=== PATIENT | female | born 1985 | race Caucasian/White ===

== ENCOUNTER → 2017-03-21 | Outpatient (CLI) | payer BC ==
[~2017-03-21] MED LIST: ETHINYL ESTRADIOL PO; NORGESTIMATE PO
[2017-03-21 18:06] LABS: URINE APPEARANCE CLOUDY (CLEAR); URINE BILIRUBIN NEG (NEG); URINE COLOR YELLOW; URINE EPITHELIAL CELL AUTO >30 /lpf (0-5); URINE NITRITE NEG (NEG); URINE SPECIFIC GRAVITY 1.025 (1.000-1.030); UROBILINOGEN NEG (NEG)
[2017-03-21 18:10] LABS: MANUAL MICROSCOPIC REQUIRED? NO; REVIEW REQ? YES
== END | disposition home or self-care (01) ==
LOC: MERGE 17:39 → C.LABSPEC 17:39
PROVIDERS: ATTEND Obstetrics & Gynecology
DX: Z34.01 Encounter for supervision of normal first pregnancy, first trimester (principal)

== ENCOUNTER → 2017-03-24 | Day surgery (SDC) | payer BC ==
[~2017-03-24] VITALS: Ht 167.6 cm; Wt 87.0 kg
[~2017-03-24] MED LIST changes: +ATROPINE SULFATE 0.1 MG/ML 5ML SYR IV PRN; +DEXAMETHASONE SOD INJ 4 MG/ML VIAL ONE; +DOXYCYCLINE HYCLATE 100 MG CAP PO SCH; +EpHEDrine SULFATE INJ 50 MG/ML AMP IV PRN; +FENTANYL CITRATE INJ 50 MCG/1 ML 2 ML VIAL IV PRN; +FENTANYL CITRATE INJ 50 MCG/1 ML 2 ML VIAL ONE; +HYDROmorphone INJ 1 MG/ML SYR IV PRN; +LACTATED RINGER'S 1000ML 1,000 ML IV SCH; +LIDOCAINE HCL 2% 2 ML VIAL (20MG/ML) ONE; +MIDAZOLAM HCL 1 MG/ML 2ML VIAL ONE; +ONDANSETRON INJ 2 MG/ML 2 ML VIAL IV PRN; +ONDANSETRON INJ 2 MG/ML 2 ML VIAL ONE; +PROPOFOL IV EMULSION 10 MG/ML 20 ML VIAL IV ONE
[2017-03-24 09:30] VITALS: BP 154/88; PULSE 86; TEMP 36.6; O2SAT 100; Ht 167.6 cm; Wt 87.0 kg
--- NOTE | 2017-03-24 11:19 | History & Physical Bridge Note ---
H&P Re-Evaluation Bridge Note: I have examined the patient, reviewed the History & Physical and in the interval since the performance of the History & Physical I have noted the following changes of clinical significance: No changes noted
--- NOTE | 2017-03-24 11:20 | Discharge Instructions ---
Discharge Instructions Date of Service Mar 24, 2017. Visit Reason for Visit: Missed Discharge Discharge Diagnosis / Problem: Dilation and Evacuation Discharge Goals Goal(s): Specific goals Activity Recommendations Activity Limitations: per Instructions/Follow-up section Anesthesia . Post Anesthesia Instructions: If you have had General Anesthesia or IV Sedation: * Do not drive today. * Resume driving when surgeon permits. * Do not make important decisions or sign legal documents today. * Call surgeon for: 1. Temperature elevations greater than 101 degrees F. 2. Uncontrollable pain. 3. Excessive bleeding. 4. Persistent nausea and vomiting. 5. Medication intolerance (nausea, vomiting or rash). * For nausea and vomiting use only clear liquids such as: tea, soda, bouillon until nausea subsides, then gradually increase diet as tolerated. * If you have any concerns or questions, call your surgeon's office. If physician is unavailable and it is an emergency, call 911 or go to the nearest emergency room. . Instructions / Follow-Up Instructions / Follow-Up ACTIVITY RECOMMENDATIONS: * Avoid tampons, douching, hot tubs, pools, and intercourse until bleeding has stopped. * May shower as usual. * No strenuous activity for 24-48 hours. After 24-48 hours, you may do anything you feel like doing (driving and sports are okay). SPECIAL CARE INSTRUCTIONS: Special Diet: * Mild nausea may occur in the immediate post-operative period. * Take clear liquids such as tea, cola or bouillon until all nausea has subsided; you may then resume your normal diet. Special Care: * Light bleeding and vaginal spotting can last from a few days to 3-4 weeks. Call your doctor if bleeding becomes heavier than the heaviest part of your period. * Check your temperature twice a day for one week. If it goes above 100.4 degrees Fahrenheit (38.0 Celsius), notify your doctor. * Call your doctor's office for an appointment for 6 weeks after your surgery. FOLLOW-UP VISIT: Call your doctor's office for an appointment for 6 weeks after your surgery. Diet Recommendations Recommended Home Diet: resume previous diet Pending Studies Studies pending at discharge: no Medical Emergencies . Who to Call and When: Medical Emergencies: If at any time you feel your situation is an emergency, please call 911 immediately. . Non-Emergent Contact Non-Emergency issues call your: Primary Care Provider . . "Provider Documentation" section prepared by Sophia Farris. .
--- NOTE | 2017-03-24 13:09 | [facility] Post Operative Brief Note ---
Immediate Operative Summary Operative Date Mar 24, 2017. Pre-Operative Diagnosis Missed Post-Operative Diagnosis Missed Procedure(s) Performed Dilation and Evacuation Surgeon Dr. Sophia Farris Car Rental Sales Assistant Surgeon(s) None Estimated Blood Loss 50 ml Findings poc Specimens Permanent Specimen A: Products of conception
--- NOTE | 2017-03-24 13:46 | Anesthesiology Progress Note ---
Anesthesia Post Op Note Date & Time Mar 24, 2017 at 13:46 Vital Signs Pain Intensity: 0 Vital Signs Past 12 Hours Date Time Temp Pulse Resp B/P (MAP) Pulse Ox O2 Delivery O2 Flow Rate FiO2 03/24/17 13:36 111/85 03/24/17 13:32 72 17 97 03/24/17 13:32 72 17 03/24/17 13:31 113/69 03/24/17 13:27 70 17 03/24/17 13:27 70 17 98 03/24/17 13:26 120/65 03/24/17 13:25 68 20 100 03/24/17 13:25 70 20 03/24/17 13:21 128/84 03/24/17 13:20 83 14 100 03/24/17 13:20 76 14 03/24/17 13:19 71 17 95 03/24/17 13:19 84 17 03/24/17 13:16 126/82 03/24/17 13:14 89 25 03/24/17 13:14 83 25 100 03/24/17 13:11 126/78 03/24/17 13:10 126/79 03/24/17 13:09 36.7 88 12 126/79 100 Mask 10 03/24/17 09:30 36.6 86 18 154/88 100 Room Air Notes Mental Status: alert / awake / arousable, participated in evaluation Pt Amnestic to Procedure: Yes Nausea / Vomiting: adequately controlled Pain: adequately controlled Airway Patency, RR, SpO2: stable & adequate BP & HR: stable & adequate Hydration State: stable & adequate Anesthetic Complications: no major complications apparent
[2017-03-24 13:55] VITALS: BP 128/65; PULSE 72; TEMP 37.1; O2SAT 99
[2017-03-24 14:25] VITALS: BP 131/65; PULSE 85; O2SAT 98
--- NOTE | 2017-03-24 14:29 | OPERATIVE REPORT ---
DATE OF OPERATION: 03/24/2017 PREOPERATIVE DIAGNOSIS: Missed . POSTOPERATIVE DIAGNOSIS: Same. PROCEDURE: D&E. SURGEON: Dr. Sophia Farris. ASSIST: None. ESTIMATED BLOOD LOSS: 50 mL. COMPLICATIONS: None. DISPOSITION: Stable to recovery room. DESCRIPTION OF PROCEDURE: Nadine was placed on the table in the dorsal lithotomy position with candy-cane stirrups, prepped and draped in standard sterile fashion and a hard time-out was taken prior to proceeding. The bladder was emptied of urine via straight catheterization. Weighted speculum was introduced in the vagina and the anterior lip of the cervix was grasped with a single-tooth tenaculum. The cervix was then serially dilated to allow passage of an 8-mm suction curette. Suction curette was introduced to the fundus at roughly 12 cm of depth. The suction was then applied through 3 passes and material consistent with products of conception was retrieved. Sharp curettage was briefly carried out to ensure good cry on all 4 philip. One final suction pass was undertaken to remove any remaining clot and debris. All instruments were then removed and of note, an Allis was briefly applied on each of the tenaculum sites due to some persistent oozing. Once this was stopped, all instruments were removed and the patient was transferred in stable condition to the recovery room. I attest to the content of the Intraoperative Record and any orders documented therein. Any exception s are noted below.
[2017-03-24 14:55] VITALS: BP 119/71; PULSE 86; TEMP 37; O2SAT 98
== END | disposition home or self-care (01) ==
LOC: C.ACU 09:04 → MERGE 12:00
PROVIDERS: ATTEND Obstetrics & Gynecology
DX: O02.1 Missed abortion (principal)

== ENCOUNTER 2017-05-29 08:01 | Emergency (ER) | payer BC ==
[~2017-05-29] VITALS: Ht 167.6 cm; Wt 85.4 kg
[~2017-05-29 08:01] MED LIST changes: -ATROPINE SULFATE 0.1 MG/ML 5ML SYR IV PRN; -DEXAMETHASONE SOD INJ 4 MG/ML VIAL ONE; -DOXYCYCLINE HYCLATE 100 MG CAP PO SCH; -EpHEDrine SULFATE INJ 50 MG/ML AMP IV PRN; -FENTANYL CITRATE INJ 50 MCG/1 ML 2 ML VIAL IV PRN; -FENTANYL CITRATE INJ 50 MCG/1 ML 2 ML VIAL ONE; -HYDROmorphone INJ 1 MG/ML SYR IV PRN; -LACTATED RINGER'S 1000ML 1,000 ML IV SCH; -LIDOCAINE HCL 2% 2 ML VIAL (20MG/ML) ONE; -MIDAZOLAM HCL 1 MG/ML 2ML VIAL ONE; -ONDANSETRON INJ 2 MG/ML 2 ML VIAL IV PRN; -ONDANSETRON INJ 2 MG/ML 2 ML VIAL ONE; -PROPOFOL IV EMULSION 10 MG/ML 20 ML VIAL IV ONE
[2017-05-29 08:04] VITALS: TEMP 37; Ht 167.6 cm; Wt 85.4 kg
[2017-05-29] MEDS ORDERED: SODIUM CHLORIDE 0.9% 1000ML 1,000 ML IV STA (08:16)
[2017-05-29] MEDS ORDERED: KETOROLAC TROMETHAMINE 30 MG/ML VIAL IV STA (08:16)
--- NOTE | 2017-05-29 08:26 | EMERGENCY ROOM VISIT NOTE ---
History Report prepared by Dayannaibe: Linda Lancaster Under the Supervision of: Dr. Luan Greenberg D.O. First contact with patient: 08:11 Chief Complaint: ABDOMINAL PAIN Stated Complaint: SHOOTING PAIN UPPER R SIDE,HEARTBURN,PRESSURE Nursing Triage Summary: Patient states "I think my gallbladder is going south." Pt c/o upper right abdominal pain around to back. Saw her PCP this past week. No meds prescribed. Has not had surgery consult. Pressure, indigestion and heartburn. Diarrhea yesterday. Denies n/v History of Present Illness The patient is a 31 year old female who presents to the Emergency Room with complaints of a constant sharp pain in her right abdomen that has worsened over the past two weeks. The patient states that she has had this pain for a long time and that she had a inconclusive HIDA scan in August 2016. She notes that her pain is worsened with with sitting and laying on her right side. She notes a decreased appetite and an episode of diarrhea The patient denies cough, rashes, and nausea. The patient notes that she had a miscarriage in March. Source of History: patient Onset: worsened over the past 2 weeks Position: abdomen (RUQ) Quality: sharp Timing: constant Modifying Factors (Worsening): other (sitting or laying on her right side) Associated Symptoms: + diarrhea, No cough, No nausea, No rash Note: Pt notes decreased appetite. Review of Systems See HPI for pertinent positives & negatives. A total of 10 systems reviewed and were otherwise negative. Past Medical & Surgical Medical Problems: (1) Miscarriage within last 12 months Family History no pertinent family history stated Social History Smoking Status: Never Smoker Marital Status: Current/Historical Medications No Active Prescriptions or Reported Meds Allergies Coded Allergies: Cefaclor (Verified Allergy, Unknown, RASH, 05/29/17) Physical Exam Vital Signs Date Time Temp Pulse Resp B/P (MAP) Pulse Ox O2 Delivery O2 Flow Rate FiO2 05/29/17 10:15 85 138/85 100 05/29/17 08:04 37.0 101 20 151/83 98 Room Air Physical Exam CONSTITUTIONAL/VITAL SIGNS: Reviewed / noted above. GENERAL: Non-toxic in appearance. INTEGUMENTARY: Warm, dry, and [place]. HEAD: Normocephalic. EYES: without scleral icterus or trauma. ENT/OROPHARYNX: clear and moist. LYMPHADENOPATHY/NECK: Is supple without lymphadenopathy or meningismus. RESPIRATORY: Lungs clear and equal. CARDIOVASCULAR: Regular rate and rhythm. GI/ABDOMEN: Soft. No organomegaly or pulsatile mass. No rebound or guarding. Normal bowel sounds. Mild tenderness to RUQ EXTREMITIES: Warm and well perfused. BACK: No CVA tenderness. NEUROLOGICAL: Intact without focal deficits. PSYCHIATRIC: normal affect. MUSCULOSKELETAL: Normally developed with good muscle tone. Medical Decision & Procedures ER Provider Diagnostic Interpretation: Radiology results as stated below per my review and radiologist interpretation: CHEST ONE VIEW PORTABLE FINDINGS: Cardiomediastinal silhouette normal. Lungs and pleural spaces clear. Osseous structures normal. Upper abdomen normal. IMPRESSION: 1. No acute cardiopulmonary disease. Electronically signed by: Prabhjot Interiano M.D. GALLBLADDER-ABD LIMITED FINDINGS: Pancreas: Visualized portions of the pancreatic head and body normal. Liver: Moderately hyperechogenic parenchyma with partial obscuration of the right hemidiaphragm, likely indicating moderate steatosis. The liver measures 16 cm in maximal sagittal dimension. No sonographic evidence of hepatic mass. Main portal vein patent with normal directional flow. Biliary: No intrahepatic biliary ductal dilatation. Common bile duct measures up to 5 mm in diameter. Gallbladder: No evidence of gallstones, gallbladder wall thickening, gallbladder distention, or pericholecystic fluid or inflammatory change. Sonographic Paredes's sign positive. Right kidney: Normal in appearance and size, measuring 9.9 cm. No hydronephrosis. Ascites: None. IMPRESSION: 1. The gallbladder is nondistended and without evidence of gallstones, wall thickening, or pericholecystic fluid to suggest cholecystitis. Therefore, the reported positive sonographic Paredes's sign is nonspecific. 2. Moderate hepatic steatosis. Right upper quadrant pain can result as a consequence of steatohepatitis. Correlate with liver function tests. Electronically signed by: Prabhjot Interiano M.D. Laboratory Results 05/29/17 08:30 Red Blood Count 4.94, Mean Corpuscular Volume 89.1, Mean Corpuscular Hemoglobin 30.2, Mean Corpuscular Hemoglobin Concent 33.9, Mean Platelet Volume 9.2, Neutrophils (%) (Auto) 62.4, Lymphocytes (%) (Auto) 26.5, Monocytes (%) (Auto) 7.6, Eosinophils (%) (Auto) 3.1, Basophils (%) (Auto) 0.2, Neutrophils # (Auto) 5.14, Lymphocytes # (Auto) 2.19, Monocytes # (Auto) 0.63, Eosinophils # (Auto) 0.26, Basophils # (Auto) 0.02 05/29/17 08:30 Test 05/29/17 08:30 05/29/17 08:33 White Blood Count 8.26 K/uL (4.8-10.8) Red Blood Count 4.94 M/uL (4.2-5.4) Hemoglobin 14.9 g/dL (12.0-16.0) Hematocrit 44.0 % (37-47) Mean Corpuscular Volume 89.1 fL (80-100) Mean Corpuscular Hemoglobin 30.2 pg (25-34) Mean Corpuscular Hemoglobin Concent 33.9 g/dl (32-36) Platelet Count 242 K/uL (130-400) Mean Platelet Volume 9.2 fL (7.4-10.4) Neutrophils (%) (Auto) 62.4 % Lymphocytes (%) (Auto) 26.5 % Monocytes (%) (Auto) 7.6 % Eosinophils (%) (Auto) 3.1 % Basophils (%) (Auto) 0.2 % Neutrophils # (Auto) 5.14 K/uL (1.4-6.5) Lymphocytes # (Auto) 2.19 K/uL (1.2-3.4) Monocytes # (Auto) 0.63 K/uL (0.11-0.59) Eosinophils # (Auto) 0.26 K/uL (0-0.5) Basophils # (Auto) 0.02 K/uL (0-0.2) RDW Standard Deviation 39.2 fL (36.4-46.3) RDW Coefficient of Variation 12.2 % (11.5-14.5) Immature Granulocyte % (Auto) 0.2 % Immature Granulocyte # (Auto) 0.02 K/uL (0.00-0.02) Prothrombin Time 10.7 SECONDS (9.0-12.0) Prothromb Time International Ratio 1.0 (0.9-1.1) Activated Partial Thromboplast Time 26.8 SECONDS (21.0-31.0) Partial Thromboplastin Ratio 1.0 D-Dimer 330 ug/L FEU (0-500) Anion Gap 6.0 mmol/L (3-11) Est Creatinine Clear Calc Drug Dose 110.4 ml/min Estimated GFR () 111.3 Estimated GFR (Non- 96.0 BUN/Creatinine Ratio 12.8 (10-20) Calcium Level 9.3 mg/dl (8.5-10.1) Total Bilirubin 1.1 mg/dl (0.2-1) Direct Bilirubin 0.2 mg/dl (0-0.2) Aspartate Amino Transf (AST/SGOT) 25 U/L (15-37) Alanine Aminotransferase (ALT/SGPT) 43 U/L (12-78) Alkaline Phosphatase 100 U/L (45-117) Total Protein 8.4 gm/dl (6.4-8.2) Albumin 4.0 gm/dl (3.4-5.0) Lipase 117 U/L (73-393) Urine Color DK YELLOW Urine Appearance CLOUDY (CLEAR) Urine pH 5.5 (4.5-7.5) Urine Specific [place] 1.029 (1.000-1.030) Urine Protein NEG (NEG) Urine Glucose (UA) NEG (NEG) Urine Ketones NEG (NEG) Urine Occult Blood 2+ (NEG) Urine Nitrite NEG (NEG) Urine Bilirubin NEG (NEG) Urine Urobilinogen NEG (NEG) Urine Leukocyte Esterase TRACE (NEG) Urine WBC (Auto) 1-5 /hpf (0-5) Urine RBC (Auto) 0-4 /hpf (0-4) Urine Hyaline Casts (Auto) 5-10 /lpf (0-5) Urine Epithelial Cells (Auto) >30 /lpf (0-5) Urine Bacteria (Auto) 1+ (NEG) Urine Test NEG (NEG) Laboratory results as stated above per my review. Medications Administered Medications (Trade) Dose Ordered Sig/Herbert Route Start Time Stop Time Status Last Admin Dose Admin Sodium Chloride 1,000 ml @ 999 mls/hr Q1H1M STAT IV 05/29/17 08:16 05/29/17 09:16 DC 05/29/17 08:46 999 MLS/HR Ketorolac Tromethamine (Toradol Inj) 30 mg NOW STAT IV 05/29/17 08:16 05/29/17 08:18 DC 05/29/17 08:45 30 MG ECG Indication: abdominal pain Rate (beats per minute): 84 Rhythm: normal sinus Findings: no acute ischemic change, no ectopy ED Course 811: Previous medical records were reviewed. The patient was evaluated in room A12B. A complete history and physical examination was performed. 181: Toradol Inj 30 mg IV, Sodium Chloride 1000 ml @ 999 mls/hr IV. 1150: On reevaluation, the patient is resting. I discussed the results and findings with the patient. She verbalized agreement of the treatment plan. The patient was discharged home. Medical Decision Differential considered: pancreatitis, hepatitis, or acute cholecystitis, AAA, UTI, pyelonephritis, kidney stones, appendicitis, diverticulitis, shingles, bowel obstruction mesenteric ischemia, intussusception,hernia, ovarian torsion, ruptured ovarian cyst,ectopic , . This is a 31-year-old female who presents to the ED with a chief complaint of right upper quadrant abdominal pain. She states that it was sharp on Monday and has otherwise been well. The patient also developed some heartburn and indigestion. The patient states that she has had the symptoms for about one week. She has had an outpatient scan that did not show a clear cut abnormality but it was recommended that she have a follow-up one of these. The patient saw her PCP on . She has been referred to GI. The patient has no other specific complaints. She denies any chest pains, shortness of breath or cough. She denies any vomiting or diarrhea. The patient had a gallbladder ultrasound today that was negative for acute disease. Chest x-ray was negative for acute disease. CBC, complete metabolic panel was unremarkable. D-dimer was negative. She is not based on a test. Urine appears contaminated. EKG shows a normal sinus rhythm. The patient was told results. She is felt to be stable for discharge and outpatient follow-up. She has follow -up with GI specialist next week. Medication Reconcilliation Current Medication List: was personally reviewed by me Blood Pressure Screening Patient's blood pressure: Elevated blood pressure Blood pressure disposition: Elevated BP felt to be situational Impression Primary Impression: RUQ abdominal pain Scribe Attestation The scribe's documentation has been prepared under my direction and personally reviewed by me in its entirety. I confirm that the note above accurately reflects all work, treatment, procedures, and medical decision making performed by me. Departure Information Dispostion Home / Self-Care Prescriptions No Active Prescriptions or Reported Meds Referrals No Doctor, Assigned (PCP) Forms HOME CARE DOCUMENTATION FORM, IMPORTANT VISIT INFORMATION Patient Instructions My [facility] Additional Instructions Follow-up as scheduled with outpatient GI and your PCP.
[2017-05-29 08:41] LABS: BASO % 0.2 %; BASO ABS # 0.02 K/uL (0-0.2); COMPLETE YES; EOS % 3.1 %; IG% 0.2 %; LYMPH % 26.5 %; LYMPH ABS # 2.19 K/uL (1.2-3.4); MEAN CELL VOLUME 89.1 fL (80-100); MEAN CORPUSCULAR HEMOGLOBIN 30.2 pg (25-34); MEAN CORPUSCULAR HGB CONC 33.9 g/dl (32-36); MEAN PLATELET VOLUME 9.2 fL (7.4-10.4); MONO % 7.6 %; NEUT % 62.4 %; PLATELET COUNT 242 K/uL (130-400); RED BLOOD COUNT 4.94 M/uL (4.2-5.4); WHITE BLOOD COUNT 8.26 K/uL (4.8-10.8)
--- NOTE | 2017-05-29 08:45 | DIAGNOSTIC IMAGING REPORT ---
CHEST ONE VIEW PORTABLE CLINICAL HISTORY: 31 years-old Female presenting with ABDOMINAL PAIN/GI. TECHNIQUE: Portable upright AP view of the chest was obtained. COMPARISON: None. FINDINGS: Cardiomediastinal silhouette normal. Lungs and pleural spaces clear. Osseous structures normal. Upper abdomen normal. IMPRESSION: 1. No acute cardiopulmonary disease. Electronically signed by: Prabhjot Interiano M.D. 05/29/2017 8:44 AM Dictated Date/Time: 05/29/2017 8:43 AM
[2017-05-29 08:56] LABS: URINE APPEARANCE CLOUDY (CLEAR); URINE BILIRUBIN NEG (NEG); URINE COLOR DK YELLOW; URINE EPITHELIAL CELL AUTO >30 /lpf (0-5); URINE NITRITE NEG (NEG); URINE PH 5.5 (4.5-7.5); URINE SPECIFIC GRAVITY 1.029 (1.000-1.030); UROBILINOGEN NEG (NEG); ZZUR CULT IF INDIC CLEAN CATCH YES
[2017-05-29 08:56] LABS: PROTHROMBIN TIME (PATIENT) 10.7 SECONDS (9.0-12.0)
[2017-05-29 08:57] LABS: MANUAL MICROSCOPIC REQUIRED? NO; REVIEW REQ? NO
[2017-05-29 08:59] LABS: BUN/CREATININE RATIO 12.8 (10-20); CALCIUM 9.3 mg/dl (8.5-10.1); CREATININE 0.82 mg/dl (0.60-1.20); POTASSIUM 3.9 mmol/L (3.5-5.1)
--- NOTE | 2017-05-29 10:14 | DIAGNOSTIC IMAGING REPORT ---
GALLBLADDER-ABD LIMITED CLINICAL HISTORY: 31 years-old Female presenting with ABDOMINAL PAIN/GI. TECHNIQUE: Real-time grayscale and limited color Doppler ultrasound imaging of the abdomen limited to the right upper quadrant was performed. COMPARISON: None. FINDINGS: Pancreas: Visualized portions of the pancreatic head and body normal. Liver: Moderately hyperechogenic parenchyma with partial obscuration of the right hemidiaphragm, likely indicating moderate steatosis. The liver measures 16 cm in maximal sagittal dimension. No sonographic evidence of hepatic mass. Main portal vein patent with normal directional flow. Biliary: No intrahepatic biliary ductal dilatation. Common bile duct measures up to 5 mm in diameter. Gallbladder: No evidence of gallstones, gallbladder wall thickening, gallbladder distention, or pericholecystic fluid or inflammatory change. Sonographic Paredes's sign positive. Right kidney: Normal in appearance and size, measuring 9.9 cm. No hydronephrosis. Ascites: None. IMPRESSION: 1. The gallbladder is nondistended and without evidence of gallstones, wall thickening, or pericholecystic fluid to suggest cholecystitis. Therefore, the reported positive sonographic Paredes's sign is nonspecific. 2. Moderate hepatic steatosis. Right upper quadrant pain can result as a consequence of steatohepatitis. Correlate with liver function tests. Electronically signed by: Prabhjot Interiano M.D. 05/29/2017 10:13 AM Dictated Date/Time: 05/29/2017 10:09 AM
[2017-05-29 12:11] VITALS: BP 139/72; PULSE 76; O2SAT 100
== END 2017-05-29 12:12 | disposition home or self-care (01) ==
LOC: C.EDB 08:02 → C.EDA 12:12
DX: R10.11 Right upper quadrant pain (principal)

== ENCOUNTER → 2017-09-11 | Outpatient (CLI) | payer BC ==
[2017-09-11 18:24] LABS: URINE APPEARANCE TURBID (CLEAR); URINE BILIRUBIN NEG (NEG); URINE COLOR YELLOW; URINE EPITHELIAL CELL AUTO >30 /lpf (0-5); URINE NITRITE NEG (NEG); URINE SPECIFIC GRAVITY 1.028 (1.000-1.030); UROBILINOGEN NEG (NEG)
[2017-09-11 18:26] LABS: MANUAL MICROSCOPIC REQUIRED? NO; REVIEW REQ? NO
== END | disposition home or self-care (01) ==
LOC: C.LABSPEC 17:43
PROVIDERS: ATTEND Obstetrics & Gynecology
DX: O09.299 Supervision of pregnancy with other poor reproductive or obstetric history, unspecified trimester (principal); Z3A.00 Weeks of gestation of pregnancy not specified

== ENCOUNTER → 2017-09-19 | Outpatient (CLI) | payer BC ==
[~2017-09-19] MED LIST changes: -ETHINYL ESTRADIOL PO; -NORGESTIMATE PO; +PRENTAB26 PO
[2017-09-19 12:23] LABS: BASO % 0.2 %; BASO ABS # 0.02 K/uL (0-0.2); COMPLETE YES; EOS % 1.2 %; HEMATOCRIT 38.8 % (37-47); IG% 0.2 %; LYMPH % 23.6 %; LYMPH ABS # 2.43 K/uL (1.2-3.4); MEAN CELL VOLUME 90.2 fL (80-100); MEAN CORPUSCULAR HEMOGLOBIN 30.9 pg (25-34); MEAN CORPUSCULAR HGB CONC 34.3 g/dl (32-36); MEAN PLATELET VOLUME 9.5 fL (7.4-10.4); MONO % 5.8 %; PLATELET COUNT 253 K/uL (130-400)
== END | disposition home or self-care (01) ==
LOC: C.LAB1850 10:47
PROVIDERS: ATTEND Obstetrics & Gynecology
DX: Z34.01 Encounter for supervision of normal first pregnancy, first trimester (principal)

== ENCOUNTER → 2017-09-22 | Day surgery (SDC) | payer BC ==
--- NOTE | 2017-09-20 14:38 | HISTORY & PHYSICAL EXAMINATION ---
DATE OF ADMISSION: 09/22/2017 ADMITTING DIAGNOSIS: Missed . ADMISSION HISTORY: The patient is a 31-year-old 2, para 0 at approximately 9+ weeks gestational age, who was admitted for suction D&E for missed AB. The patient was seen in the office this week for her new OB visit. She had an early first trimester ultrasound confirming an intrauterine with cardiac activity. At her 18 September appointment, transvaginal ultrasound showed an intrauterine with no cardiac activity. Diagnosis was made and the patient has opted for D&E. The patient's last in January ended with an approximately 8-9 week loss. She underwent a suction D&E for that procedure. PAST MEDICAL HISTORY: OBSTETRICAL: As above. GYNECOLOGICAL: Previous left ovarian oophorectomy. MEDICAL: None. SURGICAL: Tonsillectomy. ALLERGIES: TO CEPHALOSPORINS. SOCIAL HISTORY: No smoking. FAMILY HISTORY: Noncontributory. REVIEW OF SYSTEMS: As per HPI. ADMISSION PHYSICAL EXAMINATION: GENERAL: Shows a pleasant female in no acute distress. VITAL SIGNS: Blood pressure of 134/80. Height of 5 feet 6 inches and weight 190 pounds. HEENT EXAMINATION: Unremarkable. NECK: Supple. LUNGS: Clear. HEART: With a regular rhythm and rate. ABDOMEN: Soft and nontender. PELVIC: Shows normal external genitalia. Vaginal vault is pink and rugated. Cervical os is closed. Bimanual examination shows an anterior mobile uterus approximately 10 weeks size. Adnexa show no palpable masses. RECTAL: Confirmatory. EXTREMITIES: Shows no deep calf tenderness. NEUROLOGIC: Grossly intact. IMPRESSION: A 31-year-old 2, para 0 at 9+ weeks gestational age with missed . PLAN: The risks, benefits and alternatives to the surgery have been discussed. While the benefits will be removal of the gestational tissue, the risks are bleeding, infection, inadvertent perforation of the uterus and failure to remove all gestational tissue. The patient understands this. Permit has been signed. We have also discussed with the patient being her second loss. Genetic testing is offered and the patient is undecided at the time of this dictation. Permit has been signed and she wishes to proceed. CHANTELLE
[2017-09-21 15:04] VITALS: Ht 167.6 cm; Wt 86.4 kg
[~2017-09-22] VITALS: Ht 167.6 cm; Wt 86.4 kg
[~2017-09-22] MED LIST changes: +ACETAMINOPHEN 1000 MG/100 ML IV IV ONE; +ATROPINE SULFATE 0.1 MG/ML 5ML SYR IV PRN; +DEXAMETHASONE SOD INJ 4 MG/ML VIAL ONE; +DOXYCYCLINE HYCLATE 100 MG CAP PO SCH; +EpHEDrine SULFATE INJ 50 MG/ML AMP IV PRN; +FENTANYL CITRATE INJ 50 MCG/1 ML 2 ML VIAL IV PRN; +FENTANYL CITRATE INJ 50 MCG/1 ML 2 ML VIAL ONE; +FLUMAZENIL 0.1 MG/1 ML 10 ML VIAL IV PRN; +HYDROCODONE/ACETAMOPHEN 5/325MG TAB PO PRN; +IBUPROFEN 600 MG TAB PO PRN; +KETOROLAC TROMETHAMINE 30 MG/ML VIAL IV. PRN; +KETOROLAC TROMETHAMINE 30 MG/ML VIAL ONE; +LABETALOL HCL IV 5 MG/ML 20ML IV PRN; +LACTATED RINGER'S 1000ML 1,000 ML IV SCH; +LIDOCAINE HCL 2% 2 ML VIAL (20MG/ML) ONE; +METHYLERGONOVINE MALEATE 0.2 MG/ML AMP ONE; +MIDAZOLAM HCL 1 MG/ML 2ML VIAL ONE; +NALOXONE HCL 0.4 MG/1 ML VIAL/CARP IV PRN; +ONDANSETRON INJ 2 MG/ML 2 ML VIAL IV PRN; +ONDANSETRON INJ 2 MG/ML 2 ML VIAL ONE; +OXYTOCIN INJ 10 UNITS/ML VIAL ONE; +PROMETHAZINE HCL INJ 12.5 MG in SODIUM CHLORIDE 0.9% 50ML 50 ML IV PRN; +PROPOFOL IV EMULSION 10 MG/ML 20 ML VIAL IV ONE; +SODIUM CHLORIDE 0.9% 1000ML 1,000 ML IV SCH
[2017-09-22 09:53] VITALS: BP 131/75; PULSE 87; TEMP 36.8; O2SAT 99
--- NOTE | 2017-09-22 12:25 | [facility] Post Operative Brief Note ---
Immediate Operative Summary Operative Date Sep 22, 2017. Pre-Operative Diagnosis Missed Post-Operative Diagnosis Missed Procedure(s) Performed Dilation and Evacuation with Anora genetic testing Surgeon Dr. Joesph Miles Bricklayer Paving Brick Surgeon(s) None Estimated Blood Loss 100 mL Findings 10-12 week size gravid uterus, POC removed and specimen sent for genetic and pathologic evaluation, repeat exam showed a small firm anterior uterus Fluids (cc crystalloids) 800 Specimens Permanent specimens A: Products of conception Genetic testing Anora 1. Products of conception Drains None Anesthesia General Complication(s) None Disposition Recovery Room / PACU
--- NOTE | 2017-09-22 12:27 | Discharge Instructions-SurgCtr ---
Discharge Instructions Date of Service Sep 22, 2017. Visit Reason for Visit: Missed Discharge Discharge Diagnosis / Problem: same Discharge Goals Goal(s): Therapeutic intervention Activity Recommendations Activity Limitations: as noted below Anesthesia . Post Anesthesia Instructions: If you have had General Anesthesia or IV Sedation: * Do not drive today. * Resume driving when surgeon permits. * Do not make important decisions or sign legal documents today. * Call surgeon for: 1. Temperature elevations greater than 101 degrees F. 2. Uncontrollable pain. 3. Excessive bleeding. 4. Persistent nausea and vomiting. 5. Medication intolerance (nausea, vomiting or rash). * For nausea and vomiting use only clear liquids such as: tea, soda, bouillon until nausea subsides, then gradually increase diet as tolerated. * If you have any concerns or questions, call your surgeon's office. If physician is unavailable and it is an emergency, call 911 or go to the nearest emergency room. . Instructions / Follow-Up Instructions / Follow-Up ACTIVITY RECOMMENDATIONS: * Avoid tampons, douching, hot tubs, pools, and intercourse until bleeding has stopped. * May shower as usual. * No strenuous activity for 24-48 hours. After 24-48 hours, you may do anything you feel like doing (driving and sports are okay). SPECIAL CARE INSTRUCTIONS: Special Diet: * Mild nausea may occur in the immediate post-operative period. * Take clear liquids such as tea, cola or bouillon until all nausea has subsided; you may then resume your normal diet. Special Care: * Light bleeding and vaginal spotting can last from a few days to 3-4 weeks. Call your doctor if bleeding becomes heavier than the heaviest part of your period. * Check your temperature twice a day for one week. If it goes above 100.4 degrees Fahrenheit (38.0 Celsius), notify your doctor. * Call your doctor's office for an appointment for 6 weeks after your surgery. FOLLOW-UP VISIT: Call your doctor's office for an appointment for 6 weeks after your surgery. Diet Recommendations Home Diet: resume previous diet Procedures Procedures Performed: Dilation and Evacuation with Anora genetic testing Pending Studies Studies pending at discharge: yes List of pending studies: Pathology and Genetic report Medical Emergencies . Who to Call and When: Medical Emergencies: If at any time you feel your situation is an emergency, please call 911 immediately. . Non-Emergent Contact Non-Emergency issues call your: Instruction Assistant Principal Call Non-Emergent contact if: temperature is above 100.5, your pain is not controlled . . "Provider Documentation" section prepared by Joesph Miles. .
[2017-09-22 13:20] VITALS: BP 113/68; PULSE 73; TEMP 37; O2SAT 97
--- NOTE | 2017-09-22 13:20 | Anesthesiology Progress Note ---
Anesthesia Post Op Note Date & Time Sep 22, 2017 at 13:20 Vital Signs Pain Intensity: 0 Vital Signs Past 12 Hours Date Time Temp Pulse Resp B/P (MAP) Pulse Ox O2 Delivery O2 Flow Rate FiO2 09/22/17 13:15 36.2 70 20 125/67 99 Room Air 09/22/17 13:05 73 20 126/71 100 Room Air 09/22/17 12:55 73 20 117/68 100 Nasal Cannula 4 09/22/17 12:45 74 20 124/69 96 Nasal Cannula 4 09/22/17 12:38 36.3 86 20 110/74 96 Nasal Cannula 4 09/22/17 09:53 36.8 87 16 131/75 (93) 99 Room Air Notes Mental Status: alert / awake / arousable, participated in evaluation Pt Amnestic to Procedure: Yes Nausea / Vomiting: adequately controlled Pain: adequately controlled Airway Patency, RR, SpO2: stable & adequate BP & HR: stable & adequate Hydration State: stable & adequate Anesthetic Complications: no major complications apparent
--- NOTE | 2017-09-22 13:42 | OPERATIVE REPORT ---
DATE OF OPERATION: 09/22/2017 PREOPERATIVE DIAGNOSES: 1. Missed . 2. Habitual aborter. POSTOPERATIVE DIAGNOSES: Same. PROCEDURE PERFORMED: Suction D&E. SURGEON: Dr. Joesph Miles. ANESTHESIA: General. FINDINGS: Exam under anesthesia revealed a 10-12 week size anterior uterus. Products of conception removed and sent for pathological as well as genetic testing. Post-procedure examination showed a small firm anterior uterus. PROCEDURE IN DETAIL: The patient was taken to the operating room and after general anesthesia, was placed in dorsolithotomy position and draped and prepped in usual fashion. Bladder was drained of any residual urine. Single tooth tenaculum was used to grasp the anterior lip of the cervix. The cervical os was dilated with Reardon dilators to a Reardon #35 and then a #12 suction curette was introduced into the uterine cavity. Products of conception were removed on 3 passes of the vacuum pipelle. Pipelle removed and a horseshoe curet introduced into the uterine cavity to then remove any residual tissue. Fundal massage caused hemostasis. Tenaculum removed from the cervix. The patient taken out of dorsal lithotomy and to recovery room in satisfactory condition. I attest to the content of the Intraoperative Record and any orders documented therein. Any exception s are noted below.
[2017-09-22 13:48] VITALS: BP 121/60; PULSE 83; O2SAT 100
== END | disposition home or self-care (01) ==
LOC: C.ACU 09:22
PROVIDERS: ATTEND Obstetrics & Gynecology
DX: O02.1 Missed abortion (principal); N96 Recurrent pregnancy loss; Z90.721 Acquired absence of ovaries, unilateral

== ENCOUNTER → 2017-10-05 | Outpatient (CLI) | payer BC ==
[~2017-10-05] MED LIST changes: -ACETAMINOPHEN 1000 MG/100 ML IV IV ONE; -ATROPINE SULFATE 0.1 MG/ML 5ML SYR IV PRN; -DEXAMETHASONE SOD INJ 4 MG/ML VIAL ONE; -DOXYCYCLINE HYCLATE 100 MG CAP PO SCH; -EpHEDrine SULFATE INJ 50 MG/ML AMP IV PRN; -FENTANYL CITRATE INJ 50 MCG/1 ML 2 ML VIAL IV PRN; -FENTANYL CITRATE INJ 50 MCG/1 ML 2 ML VIAL ONE; -FLUMAZENIL 0.1 MG/1 ML 10 ML VIAL IV PRN; -HYDROCODONE/ACETAMOPHEN 5/325MG TAB PO PRN; -IBUPROFEN 600 MG TAB PO PRN; -KETOROLAC TROMETHAMINE 30 MG/ML VIAL IV. PRN; -KETOROLAC TROMETHAMINE 30 MG/ML VIAL ONE; -LABETALOL HCL IV 5 MG/ML 20ML IV PRN; -LACTATED RINGER'S 1000ML 1,000 ML IV SCH; -LIDOCAINE HCL 2% 2 ML VIAL (20MG/ML) ONE; -METHYLERGONOVINE MALEATE 0.2 MG/ML AMP ONE; -MIDAZOLAM HCL 1 MG/ML 2ML VIAL ONE; -NALOXONE HCL 0.4 MG/1 ML VIAL/CARP IV PRN; -ONDANSETRON INJ 2 MG/ML 2 ML VIAL IV PRN; -ONDANSETRON INJ 2 MG/ML 2 ML VIAL ONE; -OXYTOCIN INJ 10 UNITS/ML VIAL ONE; -PROMETHAZINE HCL INJ 12.5 MG in SODIUM CHLORIDE 0.9% 50ML 50 ML IV PRN; -PROPOFOL IV EMULSION 10 MG/ML 20 ML VIAL IV ONE; -SODIUM CHLORIDE 0.9% 1000ML 1,000 ML IV SCH
[2017-10-11 02:20] LABS: B2 GLYCOPROTEIN IGA <9 SAU (<=20); B2 GLYCOPROTEIN IGG <9 SGU (<=20); B2 GLYCOPROTEIN IGM <9 SMU (<=20); LUPUS ANTICOAGULANT** TC36573X Negative (Negative)
== END | disposition home or self-care (01) ==
LOC: C.LAB1850 13:21
PROVIDERS: ATTEND Obstetrics & Gynecology
DX: O02.1 Missed abortion (principal)

== ENCOUNTER → 2017-12-26 | Outpatient (CLI) | payer BC | END | disposition home or self-care (01) | LOC: C.LAB1850 15:39 | PROVIDERS: ATTEND Obstetrics & Gynecology | DX: N96 Recurrent pregnancy loss (principal) ==

== ENCOUNTER → 2018-01-25 | Outpatient (CLI) | payer BC ==
[2018-01-25 16:40] LABS: HEMATOCRIT 37.9 % (37-47); HEMOGLOBIN 12.9 g/dL (12.0-16.0); MEAN CORPUSCULAR HEMOGLOBIN 30.3 pg (25-34); MEAN PLATELET VOLUME 9.3 fL (7.4-10.4); PLATELET COUNT 254 K/uL (130-400); RED CELL DISTRIBUTION WIDTH CV 13.4 % (11.5-14.5); RED CELL DISTRIBUTION WIDTH SD 43.4 fL (36.4-46.3); WHITE BLOOD COUNT 11.52 K/uL (4.8-10.8)
== END | disposition home or self-care (01) ==
LOC: C.LAB1850 15:48
PROVIDERS: ATTEND Obstetrics & Gynecology
DX: O02.1 Missed abortion (principal)

== ENCOUNTER → 2018-01-26 | Day surgery (SDC) | payer BC ==
[~2018-01-26] VITALS: Ht 167.6 cm; Wt 88.0 kg
[~2018-01-26] MED LIST changes: +ATROPINE SULFATE 0.1 MG/ML 5ML SYR IV PRN; +DEXAMETHASONE SOD INJ 4 MG/ML VIAL ONE; +DOXYCYCLINE HYCLATE 100 MG CAP PO SCH; +EpHEDrine SULFATE INJ 50 MG/ML AMP IV PRN; +FENTANYL CITRATE INJ 50 MCG/1 ML 2 ML VIAL IV PRN; +FENTANYL CITRATE INJ 50 MCG/1 ML 2 ML VIAL ONE; +HYDROmorphone INJ 2 MG/ML SYR/VIAL IV PRN; +IBUPROFEN 600 MG TAB PO PRN; +KETOROLAC TROMETHAMINE 30 MG/ML VIAL IV. PRN; +LACTATED RINGER'S 1000ML 1,000 ML IV SCH; +LIDOCAINE HCL 2% 2 ML VIAL (20MG/ML) ONE; +METHYLERGONOVINE MALEATE 0.2 MG/ML AMP ONE; +MIDAZOLAM HCL 1 MG/ML 2ML VIAL ONE; +ONDANSETRON INJ 2 MG/ML 2 ML VIAL IV PRN; +ONDANSETRON INJ 2 MG/ML 2 ML VIAL ONE; +OXYCODONE/ACETAMINOPHEN 5-325 TAB PO PRN; +PROPOFOL IV EMULSION 10 MG/ML 20 ML VIAL IV ONE; +SODIUM CHLORIDE 0.9% 1000ML 1,000 ML IV SCH
[2018-01-26 11:24] VITALS: BP 114/74; PULSE 77; TEMP 36.7; O2SAT 100; Ht 167.6 cm; Wt 88.0 kg
--- NOTE | 2018-01-26 14:20 | [facility] Post Operative Brief Note ---
Immediate Operative Summary Operative Date Jan 26, 2018. Pre-Operative Diagnosis Missed ; recurrent loss Post-Operative Diagnosis Same as preop Procedure(s) Performed Dilation, Evacuation, and curettage Surgeon Dr. Angulo Clinical Implementation Specialist Surgeon(s) none Estimated Blood Loss 100 cc Findings See Below (uterus 10wk size preprocedure, small mobile postprocedure. large poc' s) see below Fluids (cc crystalloids) 700 Specimens A: products of conception Drains None Anesthesia Type General Complication(s) none Disposition Accompanied Pt To Recover: no Disposition: Recovery Room / PACU
--- NOTE | 2018-01-26 14:23 | Discharge Instructions ---
Discharge Instructions Date of Service Jan 26, 2018. Admission Reason for Admission: Two Previous Miscarriages, Affecting Care Of [facility] Discharge Discharge Diagnosis / Problem: after surgery Discharge Goals Goal(s): Routine recovery after surgery Activity Recommendations Activity Limitations: as noted below . Instructions / Follow-Up Instructions / Follow-Up ACTIVITY RECOMMENDATIONS: * Avoid tampons, douching, hot tubs, pools, and intercourse until bleeding has stopped. * May shower as usual. * No strenuous activity for 24-48 hours. After 24-48 hours, you may do anything you feel like doing (driving and sports are okay). SPECIAL CARE INSTRUCTIONS: Special Diet: * Mild nausea may occur in the immediate post-operative period. * Take clear liquids such as tea, cola or bouillon until all nausea has subsided; you may then resume your normal diet. Special Care: * Light bleeding and vaginal spotting can last from a few days to 3-4 weeks. Call your doctor if bleeding becomes heavier than the heaviest part of your period. * Check your temperature twice a day for one week. If it goes above 100.4 degrees Fahrenheit (38.0 Celsius), notify your doctor. * Call your doctor's office for an appointment for 2-4 weeks after your surgery. FOLLOW-UP VISIT: Call your doctor's office for an appointment for 2-4 weeks after your surgery. Current Hospital Diet Patient's current hospital diet: Discharge Diet Recommended Diet: Regular Diet Procedures Procedures Performed: Dilation, Evacuation, and curettage Pending Studies Studies pending at discharge: yes List of pending studies: pathology Medical Emergencies . Who to Call and When: Medical Emergencies: If at any time you feel your situation is an emergency, please call 911 immediately. . Non-Emergent Contact Non-Emergency issues call your: Motor Analyst . . "Provider Documentation" section prepared by Conchis Angulo. .
--- NOTE | 2018-01-26 15:08 | OPERATIVE REPORT ---
DATE OF OPERATION: 01/26/2018 PREOPERATIVE DIAGNOSES: 1. Missed . 2. History of recurrent miscarriage. POSTOPERATIVE DIAGNOSIS: Same. PROCEDURES: Dilatation and evacuation and curettage. SURGEON: Conchis Angulo MD MEDICAL MASSAGE THERAPIST: None. ANESTHESIA: General. IV FLUIDS: 700 mL. ESTIMATED BLOOD LOSS: 100 mL. FINDINGS: Uterus 10-week size preprocedure, small, mobile. Post-procedure, large products of conception. INDICATIONS: A 32-year-old 3, para 0-0-2-0 with a 9+ week missed diagnosed in the office who desires surgical management. She declined genetic testing. PROCEDURE: The patient was taken to the operating room and identified. After adequate general anesthesia was obtained, she was placed in the dorsal lithotomy position and prepped and draped in the usual sterile fashion. The bladder was drained for clear yellow urine. A weighted speculum and anterior retractor placed to visualize the cervix, which was grasped in its anterior lip with an Allis clamp. The cervix was sequentially dilated using Elham dilators to 23. The uterus was sounded to 10 cm. An 8 mm suction curette was used to evacuate the uterus of its contents. A curettage was performed to a gritty consistency and additional passes of the suction curette took place to clear the uterus of remaining tissue and blood. 0.2 mg of Methergine IM was administered by anesthesia per my order. All instruments were removed vaginally. The patient was returned to the supine position, awoke from anesthesia and transferred to recovery room in stable condition. All sponge, lap, needle counts were correct x2. I attest to the content of the Intraoperative Record and any orders documented therein. Any exception s are noted below.
[2018-01-26 15:15] VITALS: BP 118/70; PULSE 68; TEMP 36.8; O2SAT 100
--- NOTE | 2018-01-26 15:16 | Anesthesiology Progress Note ---
Anesthesia Post Op Note Date & Time Jan 26, 2018 at 15:16 Vital Signs Pain Intensity: 0 Vital Signs Past 12 Hours Date Time Temp Pulse Resp B/P (MAP) Pulse Ox O2 Delivery O2 Flow Rate FiO2 01/26/18 15:07 68 16 100 01/26/18 15:07 69 16 01/26/18 15:06 122/62 01/26/18 15:02 75 17 01/26/18 15:02 75 17 100 01/26/18 15:01 120/75 01/26/18 14:57 76 22 100 01/26/18 14:57 75 22 01/26/18 14:56 111/63 01/26/18 14:52 71 16 100 01/26/18 14:52 71 16 01/26/18 14:52 36.9 74 20 126/69 (82) 100 Room Air Oxymask 01/26/18 14:51 125/66 01/26/18 14:47 77 15 01/26/18 14:47 77 15 99 01/26/18 14:46 71 14 126/69 99 01/26/18 14:46 71 14 126/69 99 01/26/18 14:46 71 14 01/26/18 14:46 71 14 01/26/18 14:41 78 16 126/68 100 01/26/18 14:41 80 16 01/26/18 14:41 80 16 01/26/18 14:41 78 16 126/68 100 01/26/18 14:36 78 19 100 01/26/18 14:36 77 19 01/26/18 14:36 77 19 01/26/18 14:36 78 19 100 01/26/18 14:35 126/70 01/26/18 14:35 126/70 01/26/18 14:32 118/72 01/26/18 14:32 118/72 01/26/18 14:31 73 16 01/26/18 14:31 73 16 100 01/26/18 14:31 73 16 100 01/26/18 14:31 73 16 01/26/18 14:31 36.6 67 16 118/72 (91) 100 Oxymask 10 01/26/18 11:24 36.7 77 18 114/74 (87) 100 Room Air Notes Mental Status: alert / awake / arousable, participated in evaluation Pt Amnestic to Procedure: Yes Nausea / Vomiting: adequately controlled Pain: adequately controlled Airway Patency, RR, SpO2: stable & adequate BP & HR: stable & adequate Hydration State: stable & adequate Anesthetic Complications: no major complications apparent
[2018-01-26 15:45] VITALS: BP 127/70; PULSE 88; O2SAT 100
[2018-01-26 16:20] VITALS: BP 146/90; PULSE 80; O2SAT 97
== END | disposition home or self-care (01) ==
LOC: C.ACU 10:51
PROVIDERS: ATTEND Obstetrics & Gynecology
DX: O02.1 Missed abortion (principal); N96 Recurrent pregnancy loss; Z88.1 Allergy status to other antibiotic agents; Z83.49 Family history of other endocrine, nutritional and metabolic diseases; Z82.49 Family history of ischemic heart disease and other diseases of the circulatory system; Z80.3 Family history of malignant neoplasm of breast

== ENCOUNTER 2019-03-09 22:36 | Inpatient (IN) ==
[2019-03-09] MEDS ORDERED: LABETALOL HCL IV 5 MG/ML 20ML IV ONE (22:48)
[2019-03-09] MEDS ORDERED: MAG SULFATE 50% 1GM/2ML 10ML VIAL IV ONE (22:49)
[2019-03-09] MEDS ORDERED: MAGNESIUM SULFATE 4GM / WTR 100 ML BAG IV ONE ×2 (22:51→22:53)
[2019-03-09] MEDS ORDERED: LABETALOL HCL IV 5 MG/ML 20ML IV STA ×4 (22:51→23:56)
[2019-03-09] MEDS ORDERED: LACTATED RINGER'S 1,000 ML IV SCH (23:00)
[2019-03-09] MEDS ORDERED: BETAMETH SOD PHOS/ACETATE IA 6 MG/ML ONE (23:01)
[2019-03-09] MEDS ORDERED: MAGNESIUM SULFATE 40GM / WTR 1,000 ML BAG IV ONE (23:04)
--- NOTE | 2019-03-09 23:05 | History & Physical Report ---
Date of Service March 09, 2019 History of Present Illness Chief Complaint: RUQ / upper abdomen pain, nausea and vomiting. Primary Care Provider: NO PCP 33yo at 31 10/15 with SIUP and known large proteinuria since yesterday. Presents with symptoms of shortness of breath and severe RUQ pain. RN called me to notify me of her arrival on L&D and "her blood pressures are scary." I ran from call room to LD2 to evaluate patient. Nursing staff already mobilizing and beginning necessary steps including establishing IV, monitoring, etc. I am familiar with this patient having just seen her in office two days ago and reviewed labs yesterday. Reviewed record quickly and accepted with no changes. Found to have BP 230/113 on arrival. Patient questioned and denies GUARDADO and vision changes but does note she has feeling of chest pain (lower in rib area, actually same as her whole upper abdominal pain), some shortness of breath. Pain is constant and not like contractions. +FM no LOF no VB. Denies epistaxis or bruising. No change to edema per patient. On exam she is appearing anxious. Lying on her left side, breathing heavily. Auscultation shows reduced breath sounds, mild crackles at bilateral bases. Heart with RRR. Gravid, not tender over uterine body. Cvx cl/th/hi. No VB. US:vertex position, adequate DVP. Extremities: 3+ DTR with clonus. 2+ edema, nonpitting. A/P: Multiple simultaneous measures instituted with help of multiple nursing staff. stock control supervisor, Pulse Ox, facemask O2 placed, monitor established. Two IV sites established. Finishing Range Supervisor called and STAT labs including CMP, CBC, LDH, Coags, Fibrinogen ordered and drawn. Blood bank notified of severe preeclampsia patient in house; they report that 3 platelet packs are in and available. 20mg IV labetalol push. 6gm MagSO4 bolus run over 20min, followed by 4gm/hr maintenance readied. Bedrails up and seizure precautions noted. At this point I saved my draft note and stepped out of room to discuss this patient with Drs. Yanes and Fatemeh(?) at [facility]. We agree she is not stable for transfer at this time but that if BP can be brought to 140-160/80-110 range, they will accept in transfer. Returned to room where I am staying at bedside. Patient and Prabhjot counseled as we go along with these measures. She continues to feel chest pain, and is saturating 98-100% but I requested a stat CXR which was just done (23:33pm) status remains reassuring. Patient states RUQ very slightly eased, and she is feeling warmth from the magnesium. BMTZ given IM R gluteus. Will continue to work at lowering BP. BP 189/117. Currently (23:35) I have ordered 80mg IV labetalol a few minutes ago however that amount is not available on L&D, was requested from pharmacy and is now arriving by tube. Will give marcel. Allergies Allergy/AdvReac Type Severity Reaction Status Date / Time Cephalosporins Allergy Unknown RASH Verified 01/26/18 11:20 Home Medications Home Medications Medication Instructions Recorded Confirmed Type Multivit/Min/Iron/Fol Ac/Pren 1 tab PO QAM #0 tab 09/21/17 History ( Vitamin) Results & Data Vital Signs (Past 12 Hours) Vital Signs Pulse BP Pulse Ox 03/09/19 22:59 73 99 03/09/19 22:54 74 100 03/09/19 22:49 80 99 03/09/19 22:45 80 224/109 H 91 03/09/19 22:44 78 95 03/09/19 22:43 77 230/113 H
[2019-03-09 23:14] LABS: Basophils # (auto) 0.02 K/uL (0-0.2); Basophils % (auto) 0.1 %; Eosinophils # (auto) 0.19 K/uL (0-0.5); Eosinophils % (auto) 1.2 %; Hematocrit (blood only) 42.5 % (37-47); Immature Granulocytes # (auto) 0.07 K/uL (0.00-0.02); Immature Granulocytes % (auto) 0.5 %; Lymphocytes # (auto) 2.31 K/uL (1.2-3.4); Mean Corpuscular Volume 87.1 fL (80-100); Mean Platelet Volume 10.1 fL (7.4-10.4); Monocytes # (auto) 0.99 K/uL (0.11-0.59); Monocytes % (auto) 6.4 %; Neutrophils # (auto) 11.78 K/uL (1.4-6.5); Neutrophils % (auto) 76.8 %; Platelet Count 157 K/uL (130-400); RDW Coefficient of Variation 13.1 % (11.5-14.5); RDW Standard Deviation 41.6 fL (36.4-46.3); Red Blood Count 4.88 M/uL (4.2-5.4); White Blood Count 15.36 K/uL (4.8-10.8)
[2019-03-09 23:17] LABS: Mean Corpuscular Hgb Conc 35.3 g/dL (32-36)
[2019-03-09 23:30] LABS: Alanine Aminotransferase 389 U/L (12-78); Albumin Level 2.1 gm/dl (3.4-5.0); Aspartate Aminotransferase 431 U/L (15-37); BUN Creatinine Ratio 21.4 (10-20); Blood Urea Nitrogen 21 mg/dl (7-18); Calcium 10.1 mg/dl (8.5-10.1); Carbon Dioxide 24 mmol/L (21-32); Chloride 108 mmol/L (98-107); Est GFR (African American) 88.5; Est GFR (Non-African American) 76.3; Glucose 81 mg/dl (70-99); Potassium 3.8 mmol/L (3.5-5.1); Sodium 140 mmol/L (136-145)
[2019-03-09] MEDS: MAGNESIUM SULFATE / WTR 40 GM/1,000 ML BAG IV SCH (23:30)
[2019-03-09 23:33] LABS: Albumin Globulin Ratio 0.5 (0.9-2); Alkaline Phosphatase 118 U/L (45-117); Bilirubin,Total 0.8 mg/dl (0.2-1); Total Protein 6.1 gm/dl (6.4-8.2)
[2019-03-09 23:36] LABS: Fibrinogen 505 mg/dl (184-400); INR 0.9 (0.9-1.1); Partial Thromboplastin Ratio 0.9; Partial Thromboplastin Time 24.9 Seconds (21.0-31.0); Prothrombin Time 9.2 Seconds (9.0-12.0)
--- NOTE | 2019-03-09 23:46 | Labor Progress Brief Note ---
Date of Service March 09, 2019 Subjective I remain in room at bedside. Patient c/o dry mouth that is bothering her badly. One ice chip given. Labs reviewed. Patient is apparently hemoconcentrated. WBC slightly elevated, Hgb 15, Plt 157, but likely effectively lower plts due to hemoconcentration making them appear higher than reality. AST/ALT both grossly elevated along with LDH. This yields diagnosis of HELLP syndrome. Patient and Prabhjot informed. BP now responding to labetalol somewhat better, 147/109. Improved pain in upper abdomen/lower chest. Results & Data Vital Signs (Past 12 Hours) Vital Signs Pulse BP Pulse Ox 03/09/19 23:39 74 99 03/09/19 23:38 74 208/117 H 03/09/19 23:34 78 195/125 H 98 03/09/19 23:29 75 99 03/09/19 23:28 71 189/117 H 03/09/19 23:24 74 98 03/09/19 23:23 74 193/113 H 03/09/19 23:19 77 219/121 H 97 03/09/19 23:15 76 199/104 H 03/09/19 23:14 79 98 03/09/19 23:11 75 220/139 H 03/09/19 23:09 77 98 03/09/19 23:04 73 206/101 H 100 03/09/19 22:59 73 99 03/09/19 22:54 74 100 03/09/19 22:49 80 99 03/09/19 22:45 80 224/109 H 91 03/09/19 22:44 78 95 03/09/19 22:43 77 230/113 H Laboratory Results Laboratory Results - last 24 hr 03/09/19 03/09/19 03/09/19 22:57 22:57 22:57 WBC 15.36 H RBC 4.88 Hgb 15.0 Hct 42.5 MCV 87.1 MCH 30.7 MCHC 35.3 RDW Std Deviation 41.6 RDW Coeff of Alejandro 13.1 Plt Count 157 MPV 10.1 Immature Gran % (Auto) 0.5 Neut % (Auto) 76.8 Lymph % (Auto) 15.0 [place] % (Auto) 6.4 Eos % (Auto) 1.2 Baso % (Auto) 0.1 Immature Gran # (Auto) 0.07 H Neut # (Auto) 11.78 H Lymph # (Auto) 2.31 [place] # (Auto) 0.99 H Eos # (Auto) 0.19 Baso # (Auto) 0.02 PT 9.2 INR 0.9 APTT 24.9 PTT Ratio 0.9 Fibrinogen 505 H Sodium 140 Potassium 3.8 Chloride 108 H Carbon Dioxide 24 Anion Gap 8.0 BUN 21 H Creatinine 0.98 Est Cr Clr Drug Dosing Not Reportable Est GFR ( Amer) 88.5 Est GFR (Non-Af Amer) 76.3 BUN/Creatinine Ratio 21.4 H Glucose 81 Calcium 10.1 Total Bilirubin 0.8 AST 431 H ALT 389 H Alkaline Phosphatase 118 H Lactate Dehydrogenase Total Protein 6.1 L Albumin 2.1 L Globulin 4.0 Albumin/Globulin Ratio 0.5 L 03/09/19 22:57 WBC RBC Hgb Hct MCV MCH MCHC RDW Std Deviation RDW Coeff of Alejandro Plt Count MPV Immature Gran % (Auto) Neut % (Auto) Lymph % (Auto) [place] % (Auto) Eos % (Auto) Baso % (Auto) Immature Gran # (Auto) Neut # (Auto) Lymph # (Auto) [place] # (Auto) Eos # (Auto) Baso # (Auto) PT INR APTT PTT Ratio Fibrinogen Sodium Potassium Chloride Carbon Dioxide Anion Gap BUN Creatinine Est Cr Clr Drug Dosing Est GFR ( Amer) Est GFR (Non-Af Amer) BUN/Creatinine Ratio Glucose Calcium Total Bilirubin AST ALT Alkaline Phosphatase Lactate Dehydrogenase 819 H Total Protein Albumin Globulin Albumin/Globulin Ratio
[2019-03-09] MEDS ORDERED: HydrALAZINE HCL 20 MG/ML VIAL ONE (23:56)
[2019-03-09] MEDS ORDERED: NIFEdipine EXTENDED REL 30 MG TABCR PO STA (23:59)
[2019-03-10] MEDS ORDERED: NIFEdipine 10 MG CAP ONE (00:02)
--- NOTE | 2019-03-10 00:13 | Communication Note ---
Date of Service: March 10, 2019 Patient continues to have dull RUQ / lower chest pain. Dry heaving x1. BP 182/104 now just after 2nd 80mg labetalol dose. Will now give 30mg oral Procardia ([id number]) If needed, next 80mg dose labetalol ready at bedside along with 5mg Hydralazine. Dr. Elliott, hand dry cleaner converter supervisor, made aware that we are now 1+ hour into attempt to stabilize BP for transfer to [facility] however it is unclear whether we will succeed. Padding added to bedrails now. I remain at bedside. status remains reassuring / appropriate FHT for 31 weeker with 140 mod damaris +acc no decels
[2019-03-10] MEDS ORDERED: LABETALOL HCL IV 5 MG/ML 20ML IV STA (00:18)
--- NOTE | 2019-03-10 00:41 | Communication Note ---
Date of Service: March 10, 2019 I remain at bedside. Spoke with Dr. Wesley who will come in-house in anticipation of possible delivery, as BP not yet controlled despite max labetalol and a dose of oral procardia. Patient resting supine, head slight elevated. No longer moaning and c/o pain. Now chatting with . Recent emesis x1. S: Patient continues to deny any GUARDADO or vis change. Shortness of breath is improved since admission. Chest/RUQ pain is improved since admission. Abdomen monitor and storage bin tender. LE edema 2+ DTR 1+ bilateral patellae.
[2019-03-10] MEDS ORDERED: HydrALAZINE HCL 20 MG/ML VIAL IV ONE ×3 (00:43→01:45)
--- NOTE | 2019-03-10 00:43 | Communication Note ---
Date of Service: March 10, 2019 Magnesium maintenance lowered to 2g/hr.
[2019-03-10] MEDS ORDERED: MAGNESIUM SULFATE 40GM / WTR 1,000 ML BAG IV ONE (00:52)
--- NOTE | 2019-03-10 01:13 | Communication Note ---
Date of Service: March 10, 2019 I remain at bedside. Dr. Wesley has come to the patient room and done a pre-anesthesia eval. He reviewed antihypertensive therapies used thus far and agrees with use of hydralazine now. Dr. Elliott (peds medical certification specialist) has been kept apprised of our situation. Patient continues to feel her pain and SOB are improved from admission. She has been feeling FM and accels noted on strip during her statement that she was feeling the baby move more. Two doses hydralazine 5mg IV now given, last dose 01:05. Last two BP 168/99, then 188/100. Next dose planned 5mg at 01:25
--- NOTE | 2019-03-10 01:43 | Communication Note ---
Date of Service: March 10, 2019 I remain at bedside. Patient has been sleeping for a short while now with room darkened. Total meds given: 300mg labetalol IV, 30mg procardia XL orally, 15mg IV hydralazine. Another 5mg IV hydralazine ready to give at 0145. Current BP 163/85. If next several BP show stability in this range, will discuss with [facility] again and hope for transfer. Clinically, patient is greatly improved. However BP still slightly above target range. If unable to stabilize after these total doses of the above agents, will consider patient unstable for transfer and move towards delivery here.
[2019-03-10] MEDS ORDERED: CLINDAMYCIN 900 MG in DEXTROSE 5% 50 ML IV ONE (02:40)
[2019-03-10] MEDS ORDERED: CITRIC ACID/SODIUM CITRATE 15 ML UDC PO SCH (02:45)
[2019-03-10] MEDS ORDERED: LACTATED RINGER'S 1,000 ML IV SCH ×2 (02:45→03:40)
--- NOTE | 2019-03-10 02:50 | Communication Note ---
Date of Service: March 10, 2019 After 20mg total hydralazine reached, even with patient napping, BP at best 160s/90s. When awake/stressed, BP 180/100. Patient remains clinically improved without SOB or RUQ pain at this point. Discussed with Drs. Yanes and Trent at [facility]. Review of labs, BP, antihypertensives, clinical picture with both doctors. At this time they feel she is not stable for transfer and refuse the transfer. The plan is now to deliver this infant here at [facility]. A multidisiplinary approach involving conversations with ICU (who will admit the patient direct from OR), Peds (who have NICU team en route from [facility]), and Anesthesia, is being undertaken. Dr. Torres has arrived to provide surgical consultant. Will move to main OR for better access to blood product, special instruments and OR team.
--- NOTE | 2019-03-10 03:01 | Anesthesiology Consultation ---
Date of Service March 10, 2019 History Height/Weight Height: 5 ft 5 in Weight: 106.594 kg Allergies Allergy/AdvReac Type Severity Reaction Status Date / Time Cephalosporins Allergy Unknown RASH Verified 01/26/18 11:20 Medications Home Medications Medication Instructions Recorded Confirmed Last Taken vit-iron fum-folic ac 1 tab PO DAILY 03/10/19 03/10/19 03/09/19 08:00 [ Vitamin] Active Medications Generic Name Dose Route Start Last Admin Trade Name Samson PRN Reason Stop Dose Admin Lactated Ringer's 1,000 mls @ 125 mls/hr 03/09/19 23:00 03/10/19 00:42 Lr IV 04/08/19 22:59 75 mls/hr .Q8H CHAY Administration Magnesium Sulfate 40 gm in 1,000 mls @ 50 mls/hr 03/10/19 01:00 03/10/19 00:42 Magnesium Sulfate / Wtr IV 04/09/19 00:59 50 mls/hr .Q20H CHAY Infusion Social History Smoking Status: Never smoker Do You Dip or Chew Tobacco: No Hx Alcohol Use: No Hx Substance Use: No substance use type: does not use Physical Exam Vital Signs Last Vital Signs Temp 36.7 C 03/10/19 00:13 Pulse 85 03/10/19 02:54 Resp 22 03/10/19 02:00 BP 173/92 H 03/10/19 02:53 Pulse Ox 99 03/10/19 02:54
[2019-03-10] MEDS ORDERED: SODIUM CHLORIDE 0.9% 250 ML IV PRN ×2 (03:11→04:00)
[2019-03-10 03:16] LABS: Hematocrit (blood only) 41.3 % (37-47); Hemoglobin 14.7 g/dL (12.0-16.0); Mean Corpuscular Volume 85.9 fL (80-100); RDW Coefficient of Variation 13.3 % (11.5-14.5); RDW Standard Deviation 41.6 fL (36.4-46.3); Red Blood Count 4.81 M/uL (4.2-5.4); White Blood Count 19.68 K/uL (4.8-10.8)
[2019-03-10 03:37] LABS: Mean Corpuscular Hgb Conc 35.6 g/dL (32-36); Platelet Count 95 K/uL (130-400)
[2019-03-10 03:38] LABS: Basophils # (auto) 0.01 K/uL (0-0.2); Basophils % (auto) 0.1 %; Eosinophils # (auto) 0.03 K/uL (0-0.5); Eosinophils % (auto) 0.2 %; Immature Granulocytes % (auto) 0.5 %; Lymphocytes # (auto) 1.04 K/uL (1.2-3.4); Lymphocytes % (auto) 5.3 %; Mean Platelet Volume 10.4 fL (7.4-10.4); Monocytes # (auto) 1.09 K/uL (0.11-0.59); Monocytes % (auto) 5.5 %; Neutrophils # (auto) 17.41 K/uL (1.4-6.5); Neutrophils % (auto) 88.4 %; Platelet Estimate Decreased (Normal)
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
[2019-03-10 03:49] LABS: Fibrinogen 477 mg/dl (184-400); INR 0.9 (0.9-1.1); Prothrombin Time 9.4 Seconds (9.0-12.0)
[2019-03-10 03:56] LABS: Albumin Globulin Ratio 0.6 (0.9-2); Albumin Level 2.2 gm/dl (3.4-5.0); BUN Creatinine Ratio 20.2 (10-20); Bilirubin,Total 2.1 mg/dl (0.2-1); Calcium 9.4 mg/dl (8.5-10.1); Creatinine Clr Calc Pharmacy 89.9 ml/min; Est GFR (African American) 77.8; Est GFR (Non-African American) 67.1; Potassium 4.2 mmol/L (3.5-5.1); Total Protein 6.2 gm/dl (6.4-8.2)
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
[2019-03-10] MEDS ORDERED: miSOPROStol 200 MCG TAB ONE (04:11)
--- NOTE | 2019-03-10 04:34 | Communication Note ---
Date of Service: March 10, 2019 Patient has been moved to OR8. Clarisa Torres, Kaleigh, and nurse teams from OR/LD/Nursery are present. EFM shows FHT 130s and appropriate. Patient clinically comfortable. NICU team has not yet arrived at [facility]. Given change in patient's laboratory values, would prefer to move on to delivery without further delay. Will move pt from her bed with padded rails to OR table and begin process. Nursery notified and we are awaiting Dr. Elliott's arrival in OR.
[2019-03-10] MEDS ORDERED: LIDOCAINE/EPINE 2% 1:100,000 20ML ONE (04:51)
[2019-03-10] MEDS ORDERED: LIDOCAINE/EPINEPHRINE 2% 1:200,000 20 ML SDV ONE ×2 (04:54→06:35)
[2019-03-10] MEDS ORDERED: fentaNYL citrate 100 MCG/2 ML VIAL ONE ×2 (05:16→05:25)
[2019-03-10 05:47] LABS: Base Excess Cord Arterial Bld -4.6 mEq/L (-9-1.8); CO2 Cord Arterial Blood 58 mmHg (39.1-73.5); HCO3 Cord Arterial Blood 24 mmol/L (19.7-28.5); pH Cord Arterial Blood 7.23 (7.1-7.38)
[2019-03-10] MEDS ORDERED: SUPERCREAM 0.870% 15 GM JAR EXT PRN (05:48)
[2019-03-10] MEDS ORDERED: DiphenhydrAMINE HCL 50 MG/ML VIAL IV PRN ×2 (05:48→07:33)
[2019-03-10] MEDS ORDERED: HYDROCORTISONE ACETATE 25 MG SUPP PR PRN (05:48)
[2019-03-10] MEDS ORDERED: DIPHTHERIA/TETANUS/PERTUSSIS 0.5 ML SYR/VIAL IM ONE (05:48)
[2019-03-10] MEDS ORDERED: ONDANSETRON INJ 2 MG/ML 2 ML VIAL IV PRN (05:48)
[2019-03-10] MEDS ORDERED: MEPERIDINE HCL 50 MG/ML CARP IV PRN (05:48)
[2019-03-10] MEDS ORDERED: PROMETHAZINE HCL 25 MG in SODIUM CHLORIDE 0.9% 50 ML IV PRN (05:48)
[2019-03-10 05:49] LABS: PO2 Cord Arterial Blood < 10.0 % (4.1-31.7)
[2019-03-10 05:50] LABS: Base Excess Cord Venous Blood -3.7 mEq/L (-7.7-1.9); Cord Venous Blood HCO3 25 mmol/L (18.4-26.8); Cord Venous Blood PCO2 61 mmHg (30.4-57.2); Cord Venous Blood PO2 17 mmHg (14.1-43.3); Cord Venous Blood pH 7.23 (7.20-7.44); O2 Saturation Cord Venous Bld < 60.0 % (<68)
--- NOTE | 2019-03-10 05:58 | Operative Report ---
Post Operative Report Pre & Post Diagnosis Operation Date: 03/10/19 03:30 Pre-Op Diagnosis: Severe Preeclampsia / HELLP syndrome @ 31w 1d Post-Op Diagnosis: Same Procedure Operation Date: 03/10/19 03:30 Actual Procedures Primary Low transverse section Surgeon Sophia Farris MD Account Services Analyst Melissa Estimated Blood Loss 600 Findings Consistent with Post-Op Diagnosis Specimens Placenta to [facility] [place] with NICU team and Cord Gas Samples Drains Reyes Anesthesia Type L&D Only Epidural Exists Complications none Disposition Accompanied Patient To Recovery: Yes Disposition: Surgical ICU Description of Procedure The patient was brought to the operating room and placed on the table in the supine position with a leftward tilt, then prepped and draped in standard sterile fashion. A hard time out was taken prior to proceeding. A pfannensteil incision was created sharply and carried down to the fascia using bovie electrocautery. The fascia was nicked and then extended using saba scissors. The edges of the fascia were grasped with Nikos clamps and elevated, then sharply and bluntly dissected off the underlying rectus. The midline of the rectus was identified and bluntly . The peritoneum was bluntly entered, and this entry was extended using pressure from the surgeon's hands. The bladder retractor was placed and the lower uterine segment was examined and found to be well developed. A bladder flap was created and the retractor was replaced behind this flap to protect the bladder. A transverse lower uterine incision was then created, with final entry to the uterine cavity made in a blunt manner with the surgeon's finger. Clear amniotic fluid was encountered. The head was elevated to the incision and delivered using mild fundal pressure. The cord was doubly clamped and cut. The male was taken to the warmer for diagnostic medical sonographer care, and is noted to have been making cries and respirations on the surgical field. The placenta was manually extracted, then the uterus was gently exteriorized from the maternal abdomen. The cavity was cleared of clot and debris using a dry lap sponge. The angles of the incision were identified with allis clamps, and the hysterotomy was then repaired in running locked fashion using 0-vicryl suture, followed by a second imbricating layer. The tubes and ovaries were examined and found to be normal bilaterally. The posterior gutter was cleared of clot and debris. The uterus was then gently re-internalized to the abdomen. Lateral gutters were cleared of clot and debris using a damp lap sponge, and a final exam of the hysterotomy revealed good hemostasis. The rectus muscles were allowed to reapproximate naturally. The angle of the fascia was grasped with a Nikos clamp and the fascia was then repaired in running non-locked fashion with 1-vicryl suture. At the completion of repair, the fascia was examined and found to be free of any defect. The subcutaneous tissue was copiously irrigated and then reapproximated using 3-0 chromic. The skin was then closed using 4-0 monocryl in a running subcuticular fashion and a dermabond dressing was applied. The reyes was noted to be d raining urine as the patient was transferred to her ICU room. I attest to the content of the Intraoperative Record and any orders documented therein. Any exceptions are noted below.
[2019-03-10] MEDS ORDERED: OXYTOCIN 30 UNITS in LACTATED RINGER'S 1,000 ML IV SCH (06:00)
[2019-03-10] MEDS ORDERED: CARBOPROST TROMETHAMINE 250 MCG/ML AMPUL ONE (06:10)
[2019-03-10] MEDS ORDERED: ePHEDrine sulfate 50 MG/ML AMP ONE (06:28)
[2019-03-10 06:52] LABS: Hematocrit (blood only) 35.9 % (37-47); Hemoglobin 12.6 g/dL (12.0-16.0); Mean Corpuscular Volume 86.1 fL (80-100); RDW Coefficient of Variation 13.5 % (11.5-14.5); Red Blood Count 4.17 M/uL (4.2-5.4); White Blood Count 15.54 K/uL (4.8-10.8)
[2019-03-10 06:56] LABS: Mean Corpuscular Hgb Conc 35.1 g/dL (32-36); Platelet Count 95 K/uL (130-400)
--- NOTE | 2019-03-10 07:00 | Anesthesiology Progress Note ---
Date of Service March 10, 2019 Anesthesia Post Procedure Vital Signs Vital Signs: Temp Pulse Pulse Resp BP BP Pulse Ox 03/10/19 06:50 70 16 164/81 H 94 03/10/19 06:40 70 15 150/74 H 94 03/10/19 06:36 16 03/10/19 06:30 70 12 145/78 H 94 03/10/19 06:20 70 18 136/72 94 03/10/19 06:10 70 16 135/75 95 03/10/19 06:04 36.5 C 70 15 127/66 100 03/10/19 04:10 86 133/71 03/10/19 04:09 79 97 03/10/19 04:05 78 130/71 03/10/19 04:04 81 97 03/10/19 04:00 37.0 C 80 20 129/68 03/10/19 03:59 81 97 03/10/19 03:55 76 135/70 03/10/19 03:54 80 98 03/10/19 03:50 78 131/69 03/10/19 03:49 77 97 03/10/19 03:45 77 129/69 03/10/19 03:44 79 96 03/10/19 03:43 81 123/67 03/10/19 03:41 80 133/69 03/10/19 03:39 79 154/76 H 97 03/10/19 03:37 78 125/67 03/10/19 03:35 80 132/71 03/10/19 03:34 81 97 03/10/19 03:33 78 137/73 03/10/19 03:31 76 21 136/75 03/10/19 03:29 70 90 03/10/19 03:27 60 118/56 L 03/10/19 03:24 76 97 03/10/19 03:23 80 16 163/87 H 03/10/19 03:19 88 98 03/10/19 03:18 87 171/92 H 03/10/19 03:14 86 98 03/10/19 03:13 85 166/90 H 03/10/19 03:09 84 98 03/10/19 03:08 84 165/87 H 03/10/19 03:04 88 169/91 H 98 03/10/19 02:59 85 97 03/10/19 02:54 85 99 06/02/19 02:53 84 173/92 H 03/10/19 02:49 86 99 03/10/19 02:48 85 171/92 H 03/10/19 02:44 88 183/94 H 99 03/10/19 02:40 86 173/94 H 03/10/19 02:39 89 98 03/10/19 02:34 86 176/134 H 98 03/10/19 02:29 83 99 03/10/19 02:28 83 161/89 H 03/10/19 02:24 85 99 03/10/19 02:23 83 169/92 H 03/10/19 02:19 83 99 03/10/19 02:18 81 169/91 H 03/10/19 02:14 89 98 03/10/19 02:13 84 166/90 H 03/10/19 02:09 85 100 03/10/19 02:08 83 171/97 H 03/10/19 02:04 83 99 03/10/19 02:03 83 166/93 H 03/10/19 02:00 22 03/10/19 01:59 86 99 03/10/19 01:58 82 176/97 H 03/10/19 01:54 83 99 03/10/19 01:53 82 180/100 H 03/10/19 01:49 82 98 03/10/19 01:48 78 173/94 H 03/10/19 01:44 82 99 03/10/19 01:43 78 167/92 H 03/10/19 01:39 77 99 03/10/19 01:38 75 163/85 H 03/10/19 01:34 80 99 03/10/19 01:33 75 170/91 H 03/10/19 01:30 23 03/10/19 01:29 76 99 03/10/19 01:28 76 178/98 H 03/10/19 01:24 77 99 03/10/19 01:23 76 168/95 H 03/10/19 01:19 78 100 03/10/19 01:18 79 186/103 H 03/10/19 01:14 88 100 03/10/19 01:13 76 170/101 H 03/10/19 01:09 82 188/100 H 100 03/10/19 01:04 83 99 03/10/19 01:03 75 168/99 H 03/10/19 01:00 20 03/10/19 00:59 75 100 03/10/19 00:58 74 170/101 H 03/10/19 00:54 81 99 03/10/19 00:53 75 162/100 H 03/10/19 00:49 76 100 03/10/19 00:47 78 172/105 H 03/10/19 00:44 77 100 03/10/19 00:43 81 173/104 H 03/10/19 00:39 79 99 03/10/19 00:38 77 175/99 H 03/10/19 00:34 83 96 03/10/19 00:33 83 182/104 H 03/10/19 00:31 86 94 03/10/19 00:30 86 167/109 H 03/10/19 00:29 84 96 03/10/19 00:24 75 98 03/10/19 00:23 73 178/103 H 03/10/19 00:22 71 179/99 H 03/10/19 00:19 73 98 03/10/19 00:18 73 184/100 H 03/10/19 00:16 74 181/100 H 03/10/19 00:14 74 196/110 H 100 03/10/19 00:13 36.7 C 82 20 147/109 H 99 03/10/19 00:10 80 94 03/10/19 00:09 81 98 03/10/19 00:07 74 182/104 H 03/10/19 00:05 75 196/102 H 03/10/19 00:04 77 98 03/10/19 00:03 77 205/119 H 03/09/19 23:59 81 99 03/09/19 23:57 77 202/120 H 03/09/19 23:54 74 99 03/09/19 23:53 73 180/114 H 03/09/19 23:49 73 182/109 H 98 03/09/19 23:44 81 147/109 H 98 03/09/19 23:39 36.7 C 74 20 99 03/09/19 23:38 74 208/117 H 03/09/19 23:34 78 195/125 H 98 03/09/19 23:29 75 99 03/09/19 23:28 71 189/117 H 03/09/19 23:24 74 98 03/09/19 23:23 74 193/113 H 03/09/19 23:19 77 219/121 H 97 03/09/19 23:15 76 199/104 H 03/09/19 23:14 79 98 03/09/19 23:11 75 220/139 H 03/09/19 23:09 77 98 03/09/19 23:04 73 206/101 H 100 03/09/19 22:59 73 99 03/09/19 22:54 74 100 03/09/19 22:49 80 99 03/09/19 22:45 80 224/109 H 91 03/09/19 22:44 78 95 03/09/19 22:43 77 28 H 230/113 H Transfer of Care Handoff Completed per policy Notes Mental Status: alert / awake / arousable and participated in evaluation Patient Amnestic to Procedure: No Nausea / Vomiting: adequately controlled Pain: adequately controlled Airway Patency, RR, SpO2: stable & adequate BP & HR: stable & adequate Hydration State: stable & adequate Neuraxial Anesthesia: was administered and sensory block is resolving Anesthetic Complications: no major complications apparent
[2019-03-10 07:10] LABS: Albumin Level 1.9 gm/dl (3.4-5.0); BUN Creatinine Ratio 20.3 (10-20); Calcium 8.6 mg/dl (8.5-10.1); Creatinine Clr Calc Pharmacy 78.4 ml/min; Est GFR (African American) 65.9; Est GFR (Non-African American) 56.9; Potassium 4.1 mmol/L (3.5-5.1)
[2019-03-10 07:17] LABS: Albumin Globulin Ratio 0.6 (0.9-2); Globulin 3.4 gm/dl (2.5-4.0); Total Protein 5.3 gm/dl (6.4-8.2)
--- NOTE | 2019-03-10 07:22 | Critical Care Consultation ---
Date of Consultation March 10, 2019 Assessment & Plan (1) Admitted to intensive care unit: Reason Critically Ill: 33-year-old female with HELLP status post emergent section delivery with normal cytopenia transaminitis with hypertensive urgency. NEURO - * CAM ICU: NEGATIVE * Pain: Oxycodone as needed. CARDIAC/VASCULAR - * Severe hypertension: * In the setting of HELLP. Theoretically, delivery should help with symptoms. Goal SBP ~130s (patient's baseline). * Had required labetalol, hydralazine, and nifedipine. * Will start nicardipine drip. * Monitor on telemetry. RESPIRATORY - * No history of pulmonary disease. * Supplemental O2 as needed. GI/NUTRITION - * Transaminitis in the setting of HELLP. * Anticipate improvement status post delivery. * Trend liver enzymes. * Monitor INR. RENAL/LYTES - * No significant electrolyte derangements. * Monitor renal function secondary to above. * Continue with magnesium infusion in the setting of preeclampsia. - * Chu in place - Strict I&Os. ENDO - * No history of diabetes or thyroid disease. * BSGs per unit protocol. ISS --> gtt per unit policy. HEME - * Thrombocytopenia in the setting of HELLP. * Initially transfused 1 unit platelets. * Monitor for improvement status post delivery. * Transfuse as needed. ID - * No concerns for infectious contribution at this time. LINES/IV ACCESS - * PIVs x2 * LEFT radial A-line. * Chu DVT PROPHYLAXIS - * Hold in the setting of thrombocytopenia. * SCDs I have personally spent 35 minutes of critical care time in the direct management of this patient. This is a life/limb threatening event. This includes time spent evaluating patient, direct bedside care, chart review, placing orders, interpretation of diagnostic studies, discussion with consultants, patient, and family members, as well as other required patient management activities. This time is exclusive of all separately billable procedures, and teaching time and separate from and in addition to any other critical care service time. Thank you for allowing us to participate in the care of this patient. Please refer to my attending physician's documentation for any further recommendations. (2) HELLP (hemolytic anemia/elev liver enzymes/low platelets in ): (3) Status post delivery: (4) Hypertensive emergency: (5) Thrombocytopenia: Supervising Physician Co-Signing Physician Notes I saw and evaluated the patient with TRISTA Platt and I agree with the stated findings and plan. We will make the CBC and Magensium FU more frequent as well as INR History of Present Illness Attending Physician: Sophia Farris MD Patient is a 33-year-old female with no significant prior past medical history who was admitted to the mother-baby unit with concerns for preeclampsia complaining of severe RIGHT upper quadrant abdominal pain. Throughout her stay, the patient had extreme hypertension which was refractory to aggressive medications including labetalol, nifedipine, and hydralazine. Eventually, the combination medications did provide some relief of hypertension. Of concern, the patient was noted to have progression of concerns for HELLP syndrome including worsening thrombocytopenia and worsening elevation of liver enzymes. The patient was taken emergently to the operating room where she underwent section with successful delivery of 31-week male. 600 mL's EBL. Patient was pretreated with 1 unit platelets prior to delivery. On arrival in the ICU, the patient is awake, alert, and oriented. She complains of some minimal discomfort in the lower abdomen pointing to the section site. Currently, she denies any complaints of headaches, dizziness, lightheadedness, chest pain, palpitations, shortness of breath, nausea, vomiting, or abdominal discomfort. Allergies Allergy/AdvReac Type Severity Reaction Status Date / Time Cephalosporins Allergy Unknown RASH Verified 01/26/18 11:20 Home Medications Home Medications Medication Instructions Recorded Confirmed Type vit-iron fum-folic ac 1 tab PO DAILY 03/10/19 03/10/19 History [ Vitamin] Patient History Social History Preferred Language: Greek Communication Ability: Effective Drafter Landscape Required: No Beliefs That Will Affect Care: None marital status: Current Living Situation: Spouse Other Information That Helps Us Care for You: No Feels Safe at Home: Yes Safety Concerns: Feels Safe At This Time Smoking Status: Never smoker Do You Dip or Chew Tobacco: No Second Hand Exposure: No Tobacco Cessation Education Requested by Patient: No Hx Alcohol Use: No Hx Substance Use: No Review of Systems Review of Systems: All systems reviewed & are unremarkable except as noted in HPI & below Physical Exam Physical Exam: VITAL SIGNS - Vital signs and nursing notes were reviewed. GENERAL - 33-year-old female appearing her stated age who is in no acute distress. Communicates well with provider and answers questions appropriately. SKIN - Without rashes. Pristine closure s/p . HEAD - NC/AT. EYES - PERRL with EOMI bilaterally. EARS - No deformities of external structures noted on gross examination bilaterally. NOSE - Midline and without cyanosis. No epistaxis or purulent drainage noted. MOUTH/OROPHARYNX - Without perioral cyanosis. Buccal mucosa pink and moist and without leukoplakia. NECK - Neck with FROM. Supple to palpation. LUNGS - Chest wall symmetric without accessory muscle use, intercostals retractions, or central cyanosis. Normal vesicular breath sounds CTA B/L. No wh eezes, rales, or rhonchi appreciated. CARDIAC - RRR with S1/S2. No murmur, rubs, or gallops appreciated. ABDOMEN - Abdominal contour obese without pulsations or visible masses. BS normoactive all four quadrants. No tenderness, palpable masses, hepatosplenomegaly, or ascites noted. EXTREMITIES - No clubbing or peripheral cyanosis. No pretibial edema present. +3/5 radial and dorsalis pedis pulses palpated throughout. +5/5 strength noted in UE/LE bilaterally. NEUROLOGIC - Cranial nerves II through XII grossly intact. Sensory intact to light touch throughout. Patellar reflexes +2/4. PSYCH - A&Ox3 and cooperates fully with examiner. Pt is very pleasant and interacts well with examiner. Results & Data Vital Signs (Past 12 Hours) Vital Signs Temp Pulse Pulse Resp BP BP Pulse Ox 03/10/19 06:50 70 16 164/81 H 94 03/10/19 06:40 70 15 150/74 H 94 03/10/19 06:36 16 03/10/19 06:30 70 12 145/78 H 94 03/10/19 06:20 70 18 136/72 94 03/10/19 06:10 70 16 135/75 95 03/10/19 06:04 36.5 C 70 15 127/66 100 03/10/19 04:10 86 133/71 03/10/19 04:09 79 97 03/10/19 04:05 78 130/71 03/10/19 04:04 81 97 03/10/19 04:00 37.0 C 80 20 129/68 03/10/19 03:59 81 97 03/10/19 03:55 76 135/70 03/10/19 03:54 80 98 03/10/19 03:50 78 131/69 03/10/19 03:49 77 97 03/10/19 03:45 77 129/69 03/10/19 03:44 79 96 03/10/19 03:43 81 123/67 03/10/19 03:41 80 133/69 03/10/19 03:39 79 154/76 H 97 03/10/19 03:37 78 125/67 03/10/19 03:35 80 132/71 03/10/19 03:34 81 97 03/10/19 03:33 78 137/73 03/10/19 03:31 76 21 136/75 03/10/19 03:29 70 90 03/10/19 03:27 60 118/56 L 03/10/19 03:24 76 97 03/10/19 03:23 80 16 163/87 H 03/10/19 03:19 88 98 03/10/19 03:18 87 171/92 H 03/10/19 03:14 86 98 03/10/19 03:13 85 166/90 H 03/10/19 03:09 84 98 03/10/19 03:08 84 165/87 H 03/10/19 03:04 88 169/91 H 98 03/10/19 02:59 85 97 03/10/19 02:54 85 99 03/10/19 02:53 84 173/92 H 03/10/19 02:49 86 99 03/10/19 02:48 85 171/92 H 03/10/19 02:44 88 183/94 H 99 03/10/19 02:40 86 173/94 H 03/10/19 02:39 89 98 03/10/19 02:34 86 176/134 H 98 03/10/19 02:29 83 99 03/10/19 02:28 83 161/89 H 03/10/19 02:24 85 99 03/10/19 02:23 83 169/92 H 03/10/19 02:19 83 99 03/10/19 02:18 81 169/91 H 03/10/19 02:14 89 98 03/10/19 02:13 84 166/90 H 03/10/19 02:09 85 100 03/10/19 02:08 83 171/97 H 03/10/19 02:04 83 99 03/10/19 02:03 83 166/93 H 03/10/19 02:00 22 03/10/19 01:59 86 99 03/10/19 01:58 82 176/97 H 03/10/19 01:54 83 99 03/10/19 01:53 82 180/100 H 03/10/19 01:49 82 98 03/10/19 01:48 78 173/94 H 03/10/19 01:44 82 99 03/10/19 01:43 78 167/92 H 03/10/19 01:39 77 99 03/10/19 01:38 75 163/85 H 03/10/19 01:34 80 99 03/10/19 01:33 75 170/91 H 03/10/19 01:30 23 03/10/19 01:29 76 99 03/10/19 01:28 76 178/98 H 03/10/19 01:24 77 99 03/10/19 01:23 76 168/95 H 03/10/19 01:19 78 100 03/10/19 01:18 79 186/103 H 03/10/19 01:14 88 100 03/10/19 01:13 76 170/101 H 03/10/19 01:09 82 188/100 H 100 03/10/19 01:04 83 99 03/10/19 01:03 75 168/99 H 03/10/19 01:00 20 03/10/19 00:59 75 100 03/10/19 00:58 74 170/101 H 03/10/19 00:54 81 99 03/10/19 00:53 75 162/100 H 03/10/19 00:49 76 100 06 00:47 78 172/105 H 03/10/19 00:44 77 100 03/10/19 00:43 81 173/104 H 03/10/19 00:39 79 99 06 00:38 77 175/99 H 03/10/19 00:34 83 96 0602 00:33 83 182/104 H 03/10/19 00:31 86 94 03/10/19 00:30 86 167/109 H 03/10/19 00:29 84 96 03/10/19 00:24 75 98 03/10/19 00:23 73 178/103 H 03/10/19 00:22 71 179/99 H 03/10/19 00:19 73 98 03/10/19 00:18 73 184/100 H 03/10/19 00:16 74 181/100 H 03/10/19 00:14 74 196/110 H 100 03/10/19 00:13 36.7 C 82 20 147/109 H 99 03/10/19 00:10 80 94 03/10/19 00:09 81 98 03/10/19 00:07 74 182/104 H 03/10/19 00:05 75 196/102 H 03/10/19 00:04 77 98 03/10/19 00:03 77 205/119 H 03/09/19 23:59 81 99 03/09/19 23:57 77 202/120 H 03/09/19 23:54 74 99 03/09/19 23:53 73 180/114 H 03/09/19 23:49 73 182/109 H 98 03/09/19 23:44 81 147/109 H 98 03/09/19 23:39 36.7 C 74 20 99 03/09/19 23:38 74 208/117 H 03/09/19 23:34 78 195/125 H 98 03/09/19 23:29 75 99 03/09/19 23:28 71 189/117 H 03/09/19 23:24 74 98 03/09/19 23:23 74 193/113 H 03/09/19 23:19 77 219/121 H 97 03/09/19 23:15 76 199/104 H 03/09/19 23:14 79 98 03/09/19 23:11 75 220/139 H 03/09/19 23:09 77 98 03/09/19 23:04 73 206/101 H 100 03/09/19 22:59 73 99 03/09/19 22:54 74 100 03/09/19 22:49 80 99 03/09/19 22:45 80 224/109 H 91 03/09/19 22:44 78 95 03/09/19 22:43 77 28 H 230/113 H Critical Care Time Critical Care Time: Yes Total Critical Care Time: 35
[2019-03-10] MEDS ORDERED: MoRPHine SULFATE PF 1 MG/ML 10 ML AMP/VIAL ONE (07:23)
[2019-03-10] MEDS ORDERED: NALOXONE HCL 0.08 MG in SYRINGE 1.8 ML IV PRN (07:33)
[2019-03-10] MEDS ORDERED: ePHEDrine sulfate 50 MG/ML AMP IV PRN (07:33)
[2019-03-10] MEDS ORDERED: MoRPHine SULFATE PF 1 MG/ML 10 ML AMP/VIAL INT SPINAL ONE (07:33)
[2019-03-10] MEDS ORDERED: HYDROmorphone INJ 0.5 MG/0.5 ML SYR IV PRN (07:33)
[2019-03-10] MEDS ORDERED: NALOXONE HCL 1 MG in SODIUM CHLORIDE 0.9% 1000ML 1,000 ML IV PRN (07:33)
[2019-03-10] MEDS ORDERED: LACTATED RINGER'S 500 ML IV PRN (07:33)
[2019-03-10] MEDS ORDERED: NALBUPHINE HCL INJ 10 MG/ML AMP IV PRN (07:33)
[2019-03-10] MEDS ORDERED: MoRPHine SULFATE 2 MG/ML CARP IV PRN (07:33)
[2019-03-10] MEDS ORDERED: MEPERIDINE HCL 25 MG/ML CARP IV PRN (07:33)
[2019-03-10] MEDS ORDERED: NALOXONE HCL 0.4 MG/1 ML VIAL/CARP IV PRN (07:33)
[2019-03-10] MEDS ORDERED: HYDROmorphone INJ 0.5 MG/0.5 ML SYR ONE (07:36)
--- NOTE | 2019-03-10 07:42 | Anesthesiology Progress Note ---
Date of Service March 10, 2019 Subjective Epidural catheter injected with PF morphine 4 mg for analgesia. Catheter remains in place at present. Will d/c catheter after confirming satisfactory plt count and coagulation profile. Physical Exam Vital Signs: Last Vital Signs Temp 36.5 C 03/10/19 07:25 Pulse 77 03/10/19 07:25 Resp 15 03/10/19 07:25 BP 151/85 H 03/10/19 07:25 Pulse Ox 95 03/10/19 07:25 Results & Data Medications Administered Magnesium Sulfate (Magnesium Sulfate / Wtr) 40 gm in 1,000 mls @ 50 mls/hr IV .Q20H CHAY Stop: 04/09/19 00:59 Last Infusion: 03/10/19 06:45 Dose: 50 mls/hr Documented by: [id number] Cosigned by: [id number] Infusion: 03/10/19 03:38 Dose: 50 mls/hr Documented by: [id number] Cosigned by: [id number] Infusion: 03/10/19 00:42 Dose: 50 mls/hr Documented by: [id number] Cosigned by: [id number] Admin: 03/09/19 23:30 Dose: 100 mls/hr Documented by: [id number] Cosigned by: [id number] Oxytocin 30 units/ Lactated (Ringer's) 1,003 mls @ 125 mls/hr IV .Q8H2M CHAY Stop: 03/10/19 14:00 Last Admin: 03/10/19 07:23 Dose: 125 mls/hr Documented by: [id number] Cosigned by: [id number]
[2019-03-10] MEDS ORDERED: DC INTRASPINAL MORPHINE SCH (07:45)
[2019-03-10] MEDS ORDERED: NO NARCOTICS OR SEDATIVES SCH (07:45)
[2019-03-10] MEDS ORDERED: SODIUM CHLORIDE 0.9% 1000ML 1,000 ML IV SCH (07:45)
[2019-03-10] MEDS: LACTATED RINGER'S 1,000 ML IV SCH ×2 (07:51→13:59)
--- NOTE | 2019-03-10 07:54 | Communication Note ---
Date of Service: March 10, 2019 Patient was accompanied to ICU bed 9 from the OR. I personally provided report to RNs at bedside and TRISTA Lopez at nursing station. I have reviewed chart since that time and note BP essentially in target range. I note cardene GTT started per ICU. Labs do show some trend towards improvement in hepatic function and LDH. Creatinine continues to rise a bit; I note urine is now becoming more clear and do anticipate improvement with time. Plt noted stable at 95k despite transfusion of platelets, suggesting she did continue to drop after last check. Epidural catheter remains in situ for now; decision to remove will be per anesthesia and depends on ptls and coags normalizing sufficiently. Discussed by phone with Dr. Wesley who states Dr. Wheeler (daytime coverage) is aware of this plan.
[2019-03-10 09:13] LABS: Fibrinogen 370 mg/dl (184-400); Prothrombin Time 9.9 Seconds (9.0-12.0)
[2019-03-10 09:18] LABS: Hematocrit (blood only) 38.7 % (37-47); Hemoglobin 13.7 g/dL (12.0-16.0); Mean Corpuscular Hgb Conc 35.4 g/dL (32-36); Mean Corpuscular Volume 85.4 fL (80-100); RDW Coefficient of Variation 13.5 % (11.5-14.5); RDW Standard Deviation 41.8 fL (36.4-46.3); Red Blood Count 4.53 M/uL (4.2-5.4); White Blood Count 15.92 K/uL (4.8-10.8)
[2019-03-10 09:24] LABS: Mean Platelet Volume 9.5 fL (7.4-10.4); Platelet Count 90 K/uL (130-400)
[2019-03-10 09:59] LABS: Basophils # (auto) 0.01 K/uL (0-0.2); Basophils % (auto) 0.1 %; Echinocytes 1+; Eosinophils # (auto) 0.01 K/uL (0-0.5); Eosinophils % (auto) 0.1 %; Immature Granulocytes # (auto) 0.08 K/uL (0.00-0.02); Immature Granulocytes % (auto) 0.5 %; Lymphocytes # (auto) 1.06 K/uL (1.2-3.4); Lymphocytes % (auto) 6.7 %; Monocytes % (auto) 3.8 %; Neutrophils # (auto) 14.16 K/uL (1.4-6.5); Neutrophils % (auto) 88.8 %
--- NOTE | 2019-03-10 09:59 | Communication Note ---
Date of Service: March 10, 2019 I reviewed Nadine's latest labs and note that her platelets continue to drop (90), fibrinogen is falling and INR has changed from 0.9 to 1.0. Creatinine con tinues to rise. I went to ICU to see the patient and meet with the covering attending now that day shift is arrived. The patient is feeling better and in good spirits. She is in the room with and a female support person. I then met with Dr. Polk who is covering ICU right now. I expressed my concern that although AST/ALT/LDH are improving, the patient is becoming more coagulopathic rather than less, and she is at risk of DIC. I noted that our blood bank is limited in scope and has at most two remaining packs of platelets in stock. I also inquired about the possibility of transferring Nadine to a tertiary center. At this time Dr. Polk expressed that he feels Nadine is recovering as expected given her diagnosis of HELLP with delivery early this morning and can be cared for here. At my request he agreed to increase the frequency of her lab repeats to Q3h. TAWNYA Brewster was also present for this discussion and states she will be caring for patient today and is aware of my concerns. I sincerely appreciate the ICU assistance with this complicated patient and will continue to follow closely.
[2019-03-10] MEDS: DOCUSATE SODIUM 100 MG CAP PO SCH ×2 (10:22→20:22)
[2019-03-10] MEDS: SIMETHICONE 80 MG CHEW PO SCH ×4 (10:23→20:22)
[2019-03-10] MEDS: PRENATAL VITAMIN 1 TAB PO SCH (10:23)
[2019-03-10] MEDS: FERROUS SULFATE 325 MG TAB PO SCH (10:23)
--- NOTE | 2019-03-10 11:17 | XRay Report ---
SINGLE VIEW CHEST CLINICAL HISTORY: Dyspnea. . FINDINGS: An AP, portable, upright chest radiograph is compared to study dated 05/29/2017. The examina tion is degraded by portable technique and patient rotation. The cardiomediastinal silhouette is unr emarkable. There is prominence of the pulmonary vasculature. Bibasilar airspace opacities likely repr esent atelectasis. Trace pleural effusions are suspected. No pneumothorax is seen. The bony thorax is grossly intact. IMPRESSION: 1. There is prominence of the pulmonary vasculature. Correlate clinically for evidence of mild conges tive change. 2. Trace pleural effusions are suspected. 3. Bibasilar airspace opacities likely represent atelectasis. Clinical correlation will be required. Electronically signed by: Cristian Dumont M.D. 03/10/2019 11:15 AM
[2019-03-10] MEDS ORDERED: PROCHLORPERAZINE MALEATE 5 MG TAB PO PRN (11:40)
[2019-03-10] MEDS ORDERED: ACETAMINOPHEN 1,000 MG/100 ML VIAL IV PRN (11:47)
[2019-03-10] MEDS ORDERED: PROMETHAZINE HCL 12.5 MG in SODIUM CHLORIDE 0.9% 50 ML IV PRN (12:52)
[2019-03-10 13:16] LABS: Hematocrit (blood only) 37.8 % (37-47); Hemoglobin 13.2 g/dL (12.0-16.0); Mean Corpuscular Hgb Conc 34.9 g/dL (32-36); Mean Corpuscular Volume 85.3 fL (80-100); RDW Coefficient of Variation 13.5 % (11.5-14.5); RDW Standard Deviation 41.7 fL (36.4-46.3); Red Blood Count 4.43 M/uL (4.2-5.4); White Blood Count 16.32 K/uL (4.8-10.8)
[2019-03-10 13:23] LABS: Mean Platelet Volume 10.6 fL (7.4-10.4); Platelet Count 92 K/uL (130-400)
[2019-03-10 13:27] LABS: INR 0.9 (0.9-1.1); Prothrombin Time 9.7 Seconds (9.0-12.0)
[2019-03-10 13:51] LABS: Fibrinogen 451 mg/dl (184-400)
[2019-03-10 17:31] LABS: Hematocrit (blood only) 36.6 % (37-47); Hemoglobin 12.8 g/dL (12.0-16.0); Mean Corpuscular Volume 85.9 fL (80-100); RDW Coefficient of Variation 13.6 % (11.5-14.5); RDW Standard Deviation 42.1 fL (36.4-46.3); Red Blood Count 4.26 M/uL (4.2-5.4); White Blood Count 18.37 K/uL (4.8-10.8)
[2019-03-10 17:54] LABS: Fibrinogen 451 mg/dl (184-400); Prothrombin Time 9.8 Seconds (9.0-12.0)
[2019-03-10 17:59] LABS: BUN Creatinine Ratio 20.1 (10-20); Bilirubin Direct 0.3 mg/dl (0-0.2); Bilirubin,Total 1.2 mg/dl (0.2-1); Calcium 8.3 mg/dl (8.5-10.1); Creatinine Clr Calc Pharmacy 68.5 ml/min; Est GFR (Non-African American) 48.3; Magnesium 7.3 mg/dl (1.8-2.4); Mean Platelet Volume 10.9 fL (7.4-10.4); Phosphorus 5.3 mg/dl (2.5-4.9); Platelet Count 93 K/uL (130-400); Potassium 4.2 mmol/L (3.5-5.1); Total Protein 5.7 gm/dl (6.4-8.2)
[2019-03-10 18:00] LABS: Platelet Estimate Decreased (Normal)
[2019-03-10 21:39] LABS: Hematocrit (blood only) 34.3 % (37-47); Hemoglobin 12.1 g/dL (12.0-16.0); Mean Corpuscular Hgb Conc 35.3 g/dL (32-36); Mean Corpuscular Volume 85.5 fL (80-100); RDW Coefficient of Variation 13.5 % (11.5-14.5); RDW Standard Deviation 41.8 fL (36.4-46.3); Red Blood Count 4.01 M/uL (4.2-5.4); White Blood Count 19.75 K/uL (4.8-10.8)
[2019-03-10 21:56] LABS: Mean Platelet Volume 10.2 fL (7.4-10.4); Platelet Count 93 K/uL (130-400)
[2019-03-10 22:01] LABS: BUN Creatinine Ratio 23.1 (10-20); Calcium 8.1 mg/dl (8.5-10.1); Creatinine Clr Calc Pharmacy 73.1 ml/min; Est GFR (African American) 60.6; Est GFR (Non-African American) 52.3; Magnesium 6.5 mg/dl (1.8-2.4); Potassium 4.3 mmol/L (3.5-5.1)
[2019-03-10 22:14] LABS: Fibrinogen 413 mg/dl (184-400); INR 0.9 (0.9-1.1); Prothrombin Time 9.5 Seconds (9.0-12.0)
[2019-03-11 02:10] LABS: Hematocrit (blood only) 33.1 % (37-47); Hemoglobin 11.7 g/dL (12.0-16.0); Mean Corpuscular Hgb Conc 35.3 g/dL (32-36); Mean Corpuscular Volume 84.9 fL (80-100); RDW Coefficient of Variation 13.7 % (11.5-14.5); RDW Standard Deviation 41.8 fL (36.4-46.3); White Blood Count 18.99 K/uL (4.8-10.8)
[2019-03-11 02:12] LABS: Mean Platelet Volume 10.4 fL (7.4-10.4); Platelet Count 91 K/uL (130-400)
[2019-03-11 02:15] LABS: INR 0.9 (0.9-1.1); Prothrombin Time 9.5 Seconds (9.0-12.0)
[2019-03-11 02:26] LABS: Fibrinogen 421 mg/dl (184-400)
[2019-03-11 02:46] LABS: Basophils # (auto) 0.01 K/uL (0-0.2); Basophils % (auto) 0.1 %; Immature Granulocytes # (auto) 0.07 K/uL (0.00-0.02); Immature Granulocytes % (auto) 0.4 %; Lymphocytes # (auto) 2.07 K/uL (1.2-3.4); Lymphocytes % (auto) 10.9 %; Monocytes # (auto) 0.84 K/uL (0.11-0.59); Monocytes % (auto) 4.4 %; Neutrophils % (auto) 84.2 %; Polychromasia 1+
[2019-03-11] MEDS: MAGNESIUM SULFATE / WTR 40 GM/1,000 ML BAG IV SCH (05:14)
[2019-03-11] MEDS: ACETAMINOPHEN 325 MG TAB PO PRN ×3 (05:15→20:23)
[2019-03-11 05:39] LABS: Hematocrit (blood only) 33.8 % (37-47); Hemoglobin 11.9 g/dL (12.0-16.0); Mean Corpuscular Hgb Conc 35.2 g/dL (32-36); Mean Corpuscular Volume 85.1 fL (80-100); RDW Coefficient of Variation 13.5 % (11.5-14.5); RDW Standard Deviation 41.5 fL (36.4-46.3); Red Blood Count 3.97 M/uL (4.2-5.4); White Blood Count 19.07 K/uL (4.8-10.8)
[2019-03-11 05:40] LABS: Mean Platelet Volume 10.9 fL (7.4-10.4); Platelet Count 96 K/uL (130-400)
[2019-03-11 05:56] LABS: INR 0.9 (0.9-1.1); Prothrombin Time 9.3 Seconds (9.0-12.0)
[2019-03-11 06:18] LABS: Basophils # (auto) 0.01 K/uL (0-0.2); Basophils % (auto) 0.1 %; Eosinophils # (auto) 0.01 K/uL (0-0.5); Eosinophils % (auto) 0.1 %; Immature Granulocytes # (auto) 0.11 K/uL (0.00-0.02); Immature Granulocytes % (auto) 0.6 %; Monocytes # (auto) 0.96 K/uL (0.11-0.59); Neutrophils # (auto) 15.88 K/uL (1.4-6.5); Neutrophils % (auto) 83.2 %; Polychromasia 1+
[2019-03-11 06:31] LABS: Albumin Level 1.9 gm/dl (3.4-5.0); BUN Creatinine Ratio 25.8 (10-20); Bilirubin Direct 0.2 mg/dl (0-0.2); Bilirubin,Total 0.7 mg/dl (0.2-1); Calcium 7.5 mg/dl (8.5-10.1); Creatinine Clr Calc Pharmacy 82.3 ml/min; Est GFR (Non-African American) 60.4; Magnesium 5.4 mg/dl (1.8-2.4); Phosphorus 3.8 mg/dl (2.5-4.9); Potassium 4.2 mmol/L (3.5-5.1); Total Protein 5.4 gm/dl (6.4-8.2)
--- NOTE | 2019-03-11 06:38 | Anesthesia Procedure Note ---
Date of Service March 11, 2019 Anesthesia Post Epidural Note Vital Signs Vital Signs: Temp Pulse Pulse Resp BP BP Pulse Ox 03/11/19 06:00 17 03/11/19 05:00 17 03/11/19 04:00 17 03/11/19 03:00 17 03/11/19 02:00 17 03/11/19 01:00 17 03/10/19 23:00 17 03/10/19 22:01 81 17 106/65 95 03/10/19 22:00 19 03/10/19 21:30 87 18 91 03/10/19 21:01 85 22 126/67 92 03/10/19 21:00 19 03/10/19 20:30 89 17 89 L 03/10/19 20:01 86 19 107/75 92 03/10/19 20:00 19 03/10/19 19:30 80 20 90 03/10/19 19:01 84 19 94/78 L 92 03/10/19 18:03 77 16 117/66 90 03/10/19 18:00 81 20 03/10/19 17:30 84 25 H 03/10/19 17:00 89 18 03/10/19 16:01 36.5 C 72 13 131/60 97 03/10/19 16:00 69 15 93 03/10/19 15:30 73 18 93 03/10/19 15:01 71 14 127/69 96 03/10/19 15:00 82 28 H 93 03/10/19 14:30 71 12 92 03/10/19 14:02 72 15 91 03/10/19 14:01 74 13 123/58 L 96 03/10/19 14:00 80 27 H 94 03/10/19 13:30 73 17 91 03/10/19 13:01 67 17 137/64 90 03/10/19 13:00 68 16 91 03/10/19 12:30 70 20 91 03/10/19 12:16 36.5 C 03/10/19 12:02 79 28 H 92 03/10/19 12:01 73 20 113/52 L 92 03/10/19 12:00 68 15 93 03/10/19 11:30 74 18 91 03/10/19 11:01 66 16 130/49 L 93 03/10/19 11:00 66 12 93 03/10/19 10:30 71 17 91 03/10/19 10:10 74 18 91 03/10/19 10:01 71 12 122/53 L 94 03/10/19 10:00 71 14 93 03/10/19 09:50 70 12 93 03/10/19 09:40 67 18 93 03/10/19 09:30 70 21 95 03/10/19 09:20 69 12 94 03/10/19 09:16 66 12 131/59 L 93 03/10/19 09:10 69 15 91 03/10/19 09:00 69 13 93 03/10/19 08:57 16 03/10/19 08:50 74 19 94 03/10/19 08:46 72 17 128/68 94 03/10/19 08:40 71 18 94 03/10/19 08:32 71 17 94 03/10/19 08:31 71 13 133/66 94 03/10/19 08:30 36.4 C L 03/10/19 08:16 73 20 135/72 94 03/10/19 08:01 81 20 146/78 H 92 03/10/19 08:00 82 22 93 03/10/19 07:46 77 14 162/91 H 96 03/10/19 07:31 72 14 157/85 H 97 03/10/19 07:25 36.5 C 77 15 151/85 H 95 03/10/19 07:15 77 19 151/85 H 95 03/10/19 07:12 71 18 95 03/10/19 07:10 75 20 147/83 H 96 03/10/19 07:00 70 18 151/85 H 95 03/10/19 06:50 70 16 164/81 H 94 03/10/19 06:40 70 15 150/74 H 94 Pulse Ox 03/11/19 06:00 03/11/19 05:00 03/11/19 04:00 03/11/19 03:00 03/11/19 02:00 03/11/19 01:00 03/10/19 23:00 03/10/19 22:01 03/10/19 22:00 03/10/19 21:30 03/10/19 21:01 03/10/19 21:00 03/10/19 20:30 03/10/19 20:01 03/10/19 20:00 03/10/19 19:30 03/10/19 19:01 03/10/19 18:03 03/10/19 18:00 03/10/19 17:30 03/10/19 17:00 03/10/19 16:01 03/10/19 16:00 03/10/19 15:30 03/10/19 15:01 03/10/19 15:00 03/10/19 14:30 03/10/19 14:02 03/10/19 14:01 03/10/19 14:00 03/10/19 13:30 03/10/19 13:01 03/10/19 13:00 03/10/19 12:30 03/10/19 12:16 03/10/19 12:02 03/10/19 12:01 03/10/19 12:00 03/10/19 11:30 03/10/19 11:01 03/10/19 11:00 03/10/19 10:30 03/10/19 10:10 03/10/19 10:01 03/10/19 10:00 03/10/19 09:50 03/10/19 09:40 03/10/19 09:30 03/10/19 09:20 03/10/19 09:16 03/10/19 09:10 03/10/19 09:00 03/10/19 08:57 03/10/19 08:50 03/10/19 08:46 03/10/19 08:40 03/10/19 08:32 03/10/19 08:31 03/10/19 08:30 03/10/19 08:16 03/10/19 08:01 03/10/19 08:00 94 03/10/19 07:46 03/10/19 07:31 03/10/19 07:25 03/10/19 07:15 03/10/19 07:12 03/10/19 07:10 03/10/19 07:00 03/10/19 06:50 03/10/19 06:40 Pain Intensity Abdomen: Pain Intensity: 0 Notes Mental Status: alert / awake / arousable Nausea / Vomiting: adequately controlled Pain: adequately controlled Airway Patency, RR, SpO2: stable & adequate BP & HR: stable & adequate Hydration State: stable & adequate Neuraxial Anesthesia: was administered and sensory block is resolving Anesthetic Complications: no major complications apparent and Pt Satisfied with anesthetic care Epidural: Removed without complications and With tip intact Notes: Coags wnl, transaminases falling, plt ct has been stable above 90,000. Epidural cath d/c'd tip intact.
[2019-03-11] MEDS: LACTATED RINGER'S 1,000 ML IV SCH (06:43)
[2019-03-11 07:07] LABS: Fibrinogen 428 mg/dl (184-400)
[2019-03-11] MEDS: DOCUSATE SODIUM 100 MG CAP PO SCH ×2 (07:18→20:23)
[2019-03-11] MEDS: SIMETHICONE 80 MG CHEW PO SCH ×4 (07:18→20:25)
[2019-03-11] MEDS: FERROUS SULFATE 325 MG TAB PO SCH (07:18)
[2019-03-11] MEDS: PRENATAL VITAMIN 1 TAB PO SCH (07:19)
--- NOTE | 2019-03-11 07:28 | Obstetrical Progress Note ---
Date of Service <Prabhjot Barton MD - Last Filed: 03/11/19 07:35> March 11, 2019 Assessment & Plan <Prabhjot Barton MD - Last Filed: 03/11/19 07:35> (1) HELLP (hemolytic anemia/elev liver enzymes/low platelets in ): Nadine Arias is a 33yo who was admitted for hypertensive crisis and HELLP syndrome. She was refractory to maximum doses of nicardipine, hydralazine, and labetelol with systolic pressure remaining >220 and underwent emergent section at 31+1. She was transferred to the ICU for continuation of care and blood pressure management. - Currently on nicardipine 5mg/hr weaned from 7.5mg/hr last night, mag IV decrea sed to 500mg/hr (17.5cc)/hr,. Her blood pressure by cuff has fluctuated from 106-136 systolically this morning. Pain well controlled. - Her epidural line was removed last night - Platelets remaining stable at 96K today. No clinical signs of hemorrhage. Transaminases downtrending, AST 247 and ALT 448 today. - Goal pressures <160/110, ideal ~130 systolic. Goal to discontinue nicardipine and transfer to oral regimen. - After a-line is removed and nicardipine is weaned can downgrade from ICU - Once downgraded can ambulate to help improve her post sugrical ileus - Her baby is currently in the NICU at [facility]. Subjective <Prabhjot Barton MD - Last Filed: 03/11/19 07:35> Nadine reports she feels better and that her abdominal pain is improved compared to admission, but that her belly stills feels swollen and 'tight.' She has not been out of bed, her epidural was removed last night. She has a reyes in place. She has not been out of bed. She has not had a bowel movement and has minimal/no flatus. She is not short of breath, is not having difficulty breathing, and has not had any non-vaginal bleeding. Review of Systems Denies fever, chills, sweats Denies shortness of breath, difficulty breathing, chest pain, palpitations, chest pressure. Denies breast pain. Denies dysuria. Denies headache. Endorses addominal distension with improved pain. Physical Exam <Prabhjot Barton MD - Last Filed: 03/11/19 07:35> Vital Signs (Past 24 Hours) Last Vital Signs Temp 36.5 C 03/10/19 16:01 Pulse 81 03/10/19 22:01 Resp 17 03/11/19 06:00 BP 106/65 03/10/19 22:01 Pulse Ox 95 03/10/19 22:01 General: Alert, oriented. No acute distress. Cardiac: Regular rate and rhythm, no murmurs/rubs/gallops. Respiratory: Clear to auscultation anterior and posteriorly, no wheezes/rales/rhonchi. No increased work of breathing. Symmetrical chest rise. No respiratory distress. Abdomen: Distended, tympanitic. Minimally tender. Uterus: cesarian surgical incision intact, clean, dry, without erythema/discharge/bleeding/dehiscense Resident Activity Tracking <Prabhjot Barton MD - Last Filed: 03/11/19 07:35> Resident Involvement: Resident Care Provided Care Provided: Adult Hospital Medicine
--- NOTE | 2019-03-11 07:36 | Communication Note ---
Date of Service: March 11, [address] Barton this morning. Care disussed with Narcisa BOWLING and Dr. Varner. Plan today is to transition from cardene GTT to oral agent with goal of mid-range HTN to normotensive pressures on oral agent; remove A-line; remove reyes; ambulate and encourage PO to resolve what may be early ileus. Overall improvement in labs and clinical picture noted. See resident note for further details.
[2019-03-11] MEDS: AMLODIPINE BESYLATE 5 MG TAB PO SCH (09:03)
[2019-03-11] MEDS: LABETALOL HCL 200 MG TAB PO SCH ×2 (09:03→21:00)
[2019-03-11 11:41] LABS: BUN Creatinine Ratio 24.1 (10-20); Calcium 7.8 mg/dl (8.5-10.1); Creatinine Clr Calc Pharmacy 84.5 ml/min; Est GFR (African American) 72.2; Est GFR (Non-African American) 62.3; Magnesium 5.1 mg/dl (1.8-2.4)
--- NOTE | 2019-03-11 13:05 | Critical Care Progress Note ---
Date of Service March 11, 2019 Assessment & Plan (1) Admitted to intensive care unit: Reason Critically Ill: 33-year-old female with HELLP status post emergent section delivery with normal cytopenia transaminitis with hypertensive urgency. NEURO - * CAM ICU: NEGATIVE * Pain: Oxycodone as needed. CARDIAC/VASCULAR - * Severe hypertension: * In the setting of HELLP. Theoretically, delivery should help with symptoms. Goal SBP ~130s (patient's baseline). * Transition to oral medications: 200 mg labetalol 5 mg amlodipine * If has rebound hypertension would consider clonidine RESPIRATORY - * No history of pulmonary disease. * Supplemental O2 as needed. GI/NUTRITION - * Transaminitis in the setting of HELLP. * Anticipate improvement status post delivery. * Trend liver enzymes. * Monitor INR. RENAL/LYTES - * Acute kidney injury: Improved * Continue with magnesium infusion in the setting of preeclampsia. - * Continue Chu ENDO - * No history of diabetes or thyroid disease. * BSGs per unit protocol. ISS --> gtt per unit policy. HEME - * Thrombocytopenia in the setting of HELLP. Largely unchanged * Initially transfused 1 unit platelets. * Monitor for improvement status post delivery. ID - * Postprocedural antibiotics per OB LINES/IV ACCESS - * PIVs x2 * LEFT radial A-line.: Discontinue today * Chu: Discontinue today DVT PROPHYLAXIS - * Lovenox * SCDs Patient was discussed in multidisciplinary rounds I discussed the patient with Dr. Leonardo of obstetrics If patient's blood pressure remains below 160 systolic and 110 diastolic at 5 PM patient would be stable for downgrade to mother-baby unit. (2) HELLP (hemolytic anemia/elev liver enzymes/low platelets in ): (3) Status post delivery: (4) Hypertensive emergency: (5) Thrombocytopenia: Subjective Patient complains of swollen abdomen not passing flatus. No vision change no headache. Small amounts of colostrum being produced. No abdominal pain. Improved nausea Nadine Arias resting comfortably eating breakfast this morning. She reports she feels much better than she did yesterday though she does complain of a swollen abdomen. No current headache, abdominal pain, or visual disturbances. She is endorsing some abdominal pain but she says this is really only at the incision site. She has been up and to the bathroom without difficulty, no nausea or vomiting, not passing gas this morning, no bowel movement since emergent section with Dr. Farris yesterday. Review of Systems Review of Systems: As per the HPI Constitutional: no fever and no chills Respiratory: no cough and no dyspnea Cardiovascular: no chest pain, no dyspnea and no calf pain Gastrointestinal: + abdominal pain (Bloating abdominal discomfort globally, but mostly at incision site); no nausea and no vomiting Genitourinary: Lochia light Physical Exam Physical Exam: General: Alert. nontoxic. Skin: Warm, dry, Head: Atraumatic Ears, nose, mouth and throat: airway patent Cardiovascular: Normal peripheral perfusion Respiratory: no respiratory distress Gastrointestinal: Mild tympany, mild distention, no tenderness in the right upper quadrant, uterus firm, nontender, incision site clean dry and intact Musculoskeletal: No deformity, 2+ pitting edema Neuro: Mild hyperreflexia 3 out of 4, no clonus Results & Data Vital Signs (Past 12 Hours) Vital Signs Pulse Resp BP Pulse Ox 03/11/19 06:00 17 03/11/19 05:00 17 03/11/19 04:00 17 03/11/19 03:00 17 03/11/19 02:00 17 03/11/19 01:00 17 03/10/19 23:00 17 03/10/19 22:01 81 17 106/65 95 03/10/19 22:00 19 03/10/19 21:30 87 18 91 03/10/19 21:01 85 22 126/67 92 03/10/19 21:00 19 03/10/19 20:30 89 17 89 L 03/10/19 20:01 86 19 107/75 92 03/10/19 20:00 19 Laboratory Results 03/11/19 03/11/19 03/11/19 Range/Units 10:29 05:28 05:28 WBC (4.8-10.8) K/uL RBC (4.2-5.4) M/uL Hgb (12.0-16.0) g/dL Hct (37-47) % MCV (80-100) fL MCH (25-34) pg MCHC (32-36) g/dL RDW Std Deviation (36.4-46.3) fL RDW Coeff of Laejandro (11.5-14.5) % Plt Count (130-400) K/uL MPV (7.4-10.4) fL Immature Gran % (Auto) % Neut % (Auto) % Lymph % (Auto) % Rincon % (Auto) % Eos % (Auto) % Baso % (Auto) % Immature Gran # (Auto) (0.00-0.02) K/uL Neut # (Auto) (1.4-6.5) K/uL Lymph # (Auto) (1.2-3.4) K/uL Rincon # (Auto) (0.11-0.59) K/uL Eos # (Auto) (0-0.5) K/uL Baso # (Auto) (0-0.2) K/uL Platelet Estimate (Normal) Polychromasia PT 9.3 (9.0-12.0) Seconds INR 0.9 (0.9-1.1) Fibrinogen 428 H (184-400) mg/dl Sodium 138 (136-145) mmol/L Potassium 4.0 (3.5-5.1) mmol/L Chloride 106 (98-107) mmol/L Carbon Dioxide 22 (21-32) mmol/L Anion Gap 10.0 (3-11) BUN 28 H (7-18) mg/dl Creatinine 1.16 (0.6-1.2) mg/dl Est Cr Clr Drug Dosing 84.5 ml/min Est GFR ( Amer) 72.2 Est GFR (Non-Af Amer) 62.3 BUN/Creatinine Ratio 24.1 H (10-20) Glucose 96 (70-99) mg/dl Calcium 7.8 L (8.5-10.1) mg/dl Phosphorus (2.5-4.9) mg/dl Magnesium 5.1 H* (1.8-2.4) mg/dl Total Bilirubin (0.2-1) mg/dl Direct Bilirubin (0-0.2) mg/dl AST (15-37) U/L ALT (12-78) U/L Alkaline Phosphatase (45-117) U/L Total Protein (6.4-8.2) gm/dl Albumin (3.4-5.0) gm/dl 03/11/19 03/11/19 03/11/19 Range/Units 05:28 05:28 01:51 WBC 19.07 H (4.8-10.8) K/uL RBC 3.97 L (4.2-5.4) M/uL Hgb 11.9 L (12.0-16.0) g/dL Hct 33.8 L (37-47) % MCV 85.1 (80-100) fL MCH 30.0 (25-34) pg MCHC 35.2 (32-36) g/dL RDW Std Deviation 41.5 (36.4-46.3) fL RDW Coeff of Alejandro 13.5 (11.5-14.5) % Plt Count 96 L (130-400) K/uL MPV 10.9 H (7.4-10.4) fL Immature Gran % (Auto) 0.6 % Neut % (Auto) 83.2 % Lymph % (Auto) 11.0 % Rincon % (Auto) 5.0 % Eos % (Auto) 0.1 % Baso % (Auto) 0.1 % Immature Gran # (Auto) 0.11 H (0.00-0.02) K/uL Neut # (Auto) 15.88 H (1.4-6.5) K/uL Lymph # (Auto) 2.10 (1.2-3.4) K/uL Rincon # (Auto) 0.96 H (0.11-0.59) K/uL Eos # (Auto) 0.01 (0-0.5) K/uL Baso # (Auto) 0.01 (0-0.2) K/uL Platelet Estimate (Normal) Polychromasia 1+ PT (9.0-12.0) Seconds INR (0.9-1.1) Fibrinogen 421 H (184-400) mg/dl Sodium 135 L (136-145) mmol/L Potassium 4.2 (3.5-5.1) mmol/L Chloride 106 (98-107) mmol/L Carbon Dioxide 21 (21-32) mmol/L Anion Gap 8.0 (3-11) BUN 31 H (7-18) mg/dl Creatinine 1.19 (0.6-1.2) mg/dl Est Cr Clr Drug Dosing 82.3 ml/min Est GFR ( Amer) 70.0 Est GFR (Non-Af Amer) 60.4 BUN/Creatinine Ratio 25.8 H (10-20) Glucose 104 H (70-99) mg/dl Calcium 7.5 L (8.5-10.1) mg/dl Phosphorus 3.8 D (2.5-4.9) mg/dl Magnesium 5.4 H* (1.8-2.4) mg/dl Total Bilirubin 0.7 D (0.2-1) mg/dl Direct Bilirubin 0.2 (0-0.2) mg/dl AST 247 H (15-37) U/L ALT 448 H (12-78) U/L Alkaline Phosphatase 101 (45-117) U/L Total Protein 5.4 L (6.4-8.2) gm/dl Albumin 1.9 L (3.4-5.0) gm/dl 03/11/19 03/11/19 03/10/19 Range/Units 01:51 01:51 21:27 WBC 18.99 H (4.8-10.8) K/uL RBC 3.90 L (4.2-5.4) M/uL Hgb 11.7 L (12.0-16.0) g/dL Hct 33.1 L (37-47) % MCV 84.9 (80-100) fL MCH 30.0 (25-34) pg MCHC 35.3 (32-36) g/dL RDW Std Deviation 41.8 (36.4-46.3) fL RDW Coeff of Alejandro 13.7 (11.5-14.5) % Plt Count 91 L (130-400) K/uL MPV 10.4 (7.4-10.4) fL Immature Gran % (Auto) 0.4 % Neut % (Auto) 84.2 % Lymph % (Auto) 10.9 % Rincon % (Auto) 4.4 % Eos % (Auto) 0.0 % Baso % (Auto) 0.1 % Immature Gran # (Auto) 0.07 H (0.00-0.02) K/uL Neut # (Auto) 16.00 H (1.4-6.5) K/uL Lymph # (Auto) 2.07 (1.2-3.4) K/uL Rincon # (Auto) 0.84 H (0.11-0.59) K/uL Eos # (Auto) 0.00 (0-0.5) K/uL Baso # (Auto) 0.01 (0-0.2) K/uL Platelet Estimate (Normal) Polychromasia 1+ PT 9.5 9.5 (9.0-12.0) Seconds INR 0.9 0.9 (0.9-1.1) Fibrinogen 413 H (184-400) mg/dl Sodium (136-145) mmol/L Potassium (3.5-5.1) mmol/L Chloride (98-107) mmol/L Carbon Dioxide (21-32) mmol/L Anion Gap (3-11) BUN (7-18) mg/dl Creatinine (0.6-1.2) mg/dl Est Cr Clr Drug Dosing ml/min Est GFR ( Amer) Est GFR (Non-Af Amer) BUN/Creatinine Ratio (10-20) Glucose (70-99) mg/dl Calcium (8.5-10.1) mg/dl Phosphorus (2.5-4.9) mg/dl Magnesium (1.8-2.4) mg/dl Total Bilirubin (0.2-1) mg/dl Direct Bilirubin (0-0.2) mg/dl AST (15-37) U/L ALT (12-78) U/L Alkaline Phosphatase (45-117) U/L Total Protein (6.4-8.2) gm/dl Albumin (3.4-5.0) gm/dl 03/10/19 03/10/19 03/10/19 Range/Units 21:27 21:27 17:20 WBC 19.75 H (4.8-10.8) K/uL RBC 4.01 L (4.2-5.4) M/uL Hgb 12.1 (12.0-16.0) g/dL Hct 34.3 L (37-47) % MCV 85.5 (80-100) fL MCH 30.2 (25-34) pg MCHC 35.3 (32-36) g/dL RDW Std Deviation 41.8 (36.4-46.3) fL RDW Coeff of Alejandro 13.5 (11.5-14.5) % Plt Count 93 L (130-400) K/uL MPV 10.2 (7.4-10.4) fL Immature Gran % (Auto) % Neut % (Auto) % Lymph % (Auto) % Rincon % (Auto) % Eos % (Auto) % Baso % (Auto) % Immature Gran # (Auto) (0.00-0.02) K/uL Neut # (Auto) (1.4-6.5) K/uL Lymph # (Auto) (1.2-3.4) K/uL Rincon # (Auto) (0.11-0.59) K/uL Eos # (Auto) (0-0.5) K/uL Baso # (Auto) (0-0.2) K/uL Platelet Estimate (Normal) Polychromasia PT 9.8 (9.0-12.0) Seconds INR 1.0 (0.9-1.1) Fibrinogen 451 H (184-400) mg/dl Sodium 134 L (136-145) mmol/L Potassium 4.3 (3.5-5.1) mmol/L Chloride 103 (98-107) mmol/L Carbon Dioxide 21 (21-32) mmol/L Anion Gap 10.0 (3-11) BUN 31 H (7-18) mg/dl Creatinine 1.34 H (0.6-1.2) mg/dl Est Cr Clr Drug Dosing 73.1 ml/min Est GFR ( Amer) 60.6 Est GFR (Non-Af Amer) 52.3 BUN/Creatinine Ratio 23.1 H (10-20) Glucose 119 H (70-99) mg/dl Calcium 8.1 L (8.5-10.1) mg/dl Phosphorus (2.5-4.9) mg/dl Magnesium 6.5 H* (1.8-2.4) mg/dl Total Bilirubin (0.2-1) mg/dl Direct Bilirubin (0-0.2) mg/dl AST (15-37) U/L ALT (12-78) U/L Alkaline Phosphatase (45-117) U/L Total Protein (6.4-8.2) gm/dl Albumin (3.4-5.0) gm/dl 03/10/19 03/10/19 03/10/19 Range/Units 17:20 17:20 13:02 WBC 18.37 H (4.8-10.8) K/uL RBC 4.26 (4.2-5.4) M/uL Hgb 12.8 (12.0-16.0) g/dL Hct 36.6 L (37-47) % MCV 85.9 (80-100) fL MCH 30.0 (25-34) pg MCHC 35.0 (32-36) g/dL RDW Std Deviation 42.1 (36.4-46.3) fL RDW Coeff of Alejandro 13.6 (11.5-14.5) % Plt Count 93 L (130-400) K/uL MPV 10.9 H (7.4-10.4) fL Immature Gran % (Auto) % Neut % (Auto) % Lymph % (Auto) % Rincon % (Auto) % Eos % (Auto) % Baso % (Auto) % Immature Gran # (Auto) (0.00-0.02) K/uL Neut # (Auto) (1.4-6.5) K/uL Lymph # (Auto) (1.2-3.4) K/uL Rincon # (Auto) (0.11-0.59) K/uL Eos # (Auto) (0-0.5) K/uL Baso # (Auto) (0-0.2) K/uL Platelet Estimate Decreased L (Normal) Polychromasia PT (9.0-12.0) Seconds INR (0.9-1.1) Fibrinogen 451 H (184-400) mg/dl Sodium 135 L (136-145) mmol/L Potassium 4.2 (3.5-5.1) mmol/L Chloride 103 (98-107) mmol/L Carbon Dioxide 19 L (21-32) mmol/L Anion Gap 13.0 H (3-11) BUN 29 H (7-18) mg/dl Creatinine 1.43 H (0.6-1.2) mg/dl Est Cr Clr Drug Dosing 68.5 ml/min Est GFR ( Amer) 56.0 Est GFR (Non-Af Amer) 48.3 BUN/Creatinine Ratio 20.1 H (10-20) Glucose 178 H (70-99) mg/dl Calcium 8.3 L (8.5-10.1) mg/dl Phosphorus 5.3 H (2.5-4.9) mg/dl Magnesium 7.3 H* (1.8-2.4) mg/dl Total Bilirubin 1.2 H (0.2-1) mg/dl Direct Bilirubin 0.3 H (0-0.2) mg/dl AST 587 H (15-37) U/L ALT 649 H (12-78) U/L Alkaline Phosphatase 106 (45-117) U/L Total Protein 5.7 L (6.4-8.2) gm/dl Albumin 2.0 L (3.4-5.0) gm/dl 03/10/19 03/10/19 Range/Units 13:02 13:02 WBC 16.32 H (4.8-10.8) K/uL RBC 4.43 (4.2-5.4) M/uL Hgb 13.2 (12.0-16.0) g/dL Hct 37.8 (37-47) % MCV 85.3 (80-100) fL MCH 29.8 (25-34) pg MCHC 34.9 (32-36) g/dL RDW Std Deviation 41.7 (36.4-46.3) fL RDW Coeff of Alejandro 13.5 (11.5-14.5) % Plt Count 92 L (130-400) K/uL MPV 10.6 H (7.4-10.4) fL Immature Gran % (Auto) % Neut % (Auto) % Lymph % (Auto) % Rincon % (Auto) % Eos % (Auto) % Baso % (Auto) % Immature Gran # (Auto) (0.00-0.02) K/uL Neut # (Auto) (1.4-6.5) K/uL Lymph # (Auto) (1.2-3.4) K/uL Rincon # (Auto) (0.11-0.59) K/uL Eos # (Auto) (0-0.5) K/uL Baso # (Auto) (0-0.2) K/uL Platelet Estimate (Normal) Polychromasia PT 9.7 (9.0-12.0) Seconds INR 0.9 (0.9-1.1) Fibrinogen (184-400) mg/dl Sodium (136-145) mmol/L Potassium (3.5-5.1) mmol/L Chloride (98-107) mmol/L Carbon Dioxide (21-32) mmol/L Anion Gap (3-11) BUN (7-18) mg/dl Creatinine (0.6-1.2) mg/dl Est Cr Clr Drug Dosing ml/min Est GFR ( Amer) Est GFR (Non-Af Amer) BUN/Creatinine Ratio (10-20) Glucose (70-99) mg/dl Calcium (8.5-10.1) mg/dl Phosphorus (2.5-4.9) mg/dl Magnesium (1.8-2.4) mg/dl Total Bilirubin (0.2-1) mg/dl Direct Bilirubin (0-0.2) mg/dl AST (15-37) U/L ALT (12-78) U/L Alkaline Phosphatase (45-117) U/L Total Protein (6.4-8.2) gm/dl Albumin (3.4-5.0) gm/dl Resident Activity Tracking Resident Involvement: Resident Care Provided Care Provided: Adult Hospital Medicine
[2019-03-11] MEDS ORDERED: METOCLOPRAMIDE HCL INJ 5 MG/ML 2 ML VIAL IV STA (13:11)
[2019-03-11] MEDS ORDERED: ENOXAPARIN INJ 40 MG/0.4 ML SYR SQ SCH (14:00)
[2019-03-11 17:29] LABS: Hematocrit (blood only) 36.8 % (37-47); Hemoglobin 12.7 g/dL (12.0-16.0); Mean Corpuscular Hgb Conc 34.5 g/dL (32-36); Mean Corpuscular Volume 86.4 fL (80-100); Mean Platelet Volume 10.6 fL (7.4-10.4); Platelet Count 101 K/uL (130-400); RDW Coefficient of Variation 13.9 % (11.5-14.5); RDW Standard Deviation 43.1 fL (36.4-46.3); Red Blood Count 4.26 M/uL (4.2-5.4); White Blood Count 17.84 K/uL (4.8-10.8)
[2019-03-11 17:55] LABS: BUN Creatinine Ratio 22.7 (10-20); Bilirubin Direct 0.2 mg/dl (0-0.2); Calcium 7.9 mg/dl (8.5-10.1); Est GFR (African American) 67.9; Est GFR (Non-African American) 58.6; Magnesium Therapeutic L&D Only 4.6 mg/dL (4.0-8.0); Potassium 4.1 mmol/L (3.5-5.1)
[2019-03-11 17:58] LABS: Bilirubin,Total 0.7 mg/dl (0.2-1); Total Protein 5.6 gm/dl (6.4-8.2)
[2019-03-11 23:10] LABS: Basophils # (auto) 0.01 K/uL (0-0.2); Basophils % (auto) 0.1 %; Eosinophils # (auto) 0.05 K/uL (0-0.5); Eosinophils % (auto) 0.3 %; Hematocrit (blood only) 36.4 % (37-47); Hemoglobin 12.8 g/dL (12.0-16.0); Immature Granulocytes # (auto) 0.14 K/uL (0.00-0.02); Immature Granulocytes % (auto) 0.8 %; Lymphocytes # (auto) 2.93 K/uL (1.2-3.4); Lymphocytes % (auto) 16.5 %; Mean Corpuscular Hgb Conc 35.2 g/dL (32-36); Mean Corpuscular Volume 86.9 fL (80-100); Mean Platelet Volume 10.9 fL (7.4-10.4); Monocytes # (auto) 1.21 K/uL (0.11-0.59); Monocytes % (auto) 6.8 %; Neutrophils # (auto) 13.46 K/uL (1.4-6.5); Neutrophils % (auto) 75.5 %; Platelet Count 102 K/uL (130-400); RDW Coefficient of Variation 14.2 % (11.5-14.5); Red Blood Count 4.19 M/uL (4.2-5.4)
[2019-03-11 23:26] LABS: Creatinine Clr Calc Pharmacy 87.3 ml/min; Est GFR (African American) 72.2; Est GFR (Non-African American) 62.3
[2019-03-12] MEDS: OXYCODONE/ACETAMINOPHEN 5mg/325mg TAB PO PRN ×5 (02:00→20:49)
[2019-03-12 06:29] LABS: Hematocrit (blood only) 33.3 % (37-47); Hemoglobin 11.5 g/dL (12.0-16.0); Mean Corpuscular Volume 86.7 fL (80-100); RDW Coefficient of Variation 14.3 % (11.5-14.5); RDW Standard Deviation 44.3 fL (36.4-46.3); Red Blood Count 3.84 M/uL (4.2-5.4); White Blood Count 16.42 K/uL (4.8-10.8)
--- NOTE | 2019-03-12 06:48 | Obstetrical Progress Note ---
Date of Service <Prabhjot Barton MD - Last Filed: 03/12/19 06:48> March 12, 2019 Assessment & Plan <Prabhjot Braton MD - Last Filed: 03/12/19 06:48> (1) HELLP (hemolytic anemia/elev liver enzymes/low platelets in ): Nadine Arias is a 33yo who was admitted for hypertensive crisis and HELLP syndrome. She was refractory to maximum doses of nicardipine, hydralazine, and labetelol with systolic pressure remaining >220 and underwent emergent section at 31+1. She was transferred to the ICU for continuation of care and blood pressure management and has since been downgraded. - Downgraded from ICU, BP 170/99 this morning. Labetelol increased from 200mg BID to 300mg BID. - Goal pressures <160/110, ideal ~130 systolic. - No headaches - Ambulate to help improve ileus. - Platelets, AST, ALT pending today. Platelets have been remaining stable >90K, AST/ALT have been downtrending. - Her baby is currently in the NICU at [facility]. Subjective <Prabhjot Barton MD - Last Filed: 03/12/19 06:48> Ambulation: ambulating normally Voiding: no voiding problems Passing Gas:: Yes (no bowel movement yet) Diet Tolerance:: regular diet Lochia:: Small Current Pain Level(1-10): 2 Baby is in [place] after transfer at 31wk for HELLP Review of Systems Denies fever, chills, sweats Denies shortness of breath, difficulty breathing, chest pain, palpitations, chest pressure. Denies breast pain. Denies dysuria. Denies headache. Endorses abdominal distension, constipation Physical Exam <Prabhjot Barton MD - Last Filed: 03/12/19 06:48> Vital Signs (Past 24 Hours) Last Vital Signs Temp 37.1 C 03/12/19 04:00 Pulse 88 03/12/19 04:00 Resp 18 03/12/19 04:00 BP 170/99 H 03/12/19 04:00 Pulse Ox 100 03/12/19 04:00 General: Alert, oriented. No acute distress. Cardiac: Regular rate and rhythm, no murmurs/rubs/gallops. Respiratory: Clear to auscultation anterior and posteriorly, no wheezes/rales/rhonchi. No increased work of breathing. Symmetrical chest rise. No respiratory distress. Abdomen: Nontender, but distended and tympanitic. surgical incision intact, C/D/I and healing well. Uterus: Uterine fundus firm, low. Lower Extremities: MIld distal extremity swelling without pitting edema. No deep calf pain. Guido's negative bilaterally. <Valentine Ching MD, FACOG - Last Filed: 03/12/19 07:50> Co-Signing Physician Notes Resident Physician Supervision Note: I interviewed and examined the patient. Discussed with Dr. Prabhjot Barton PGY1 and agree with findings and plan as documented in the note. Any exceptions or clarifications are listed here: [None] Documented By: Valentine Ching MD, FACOG Resident Activity Tracking <Prabhjot Barton MD - Last Filed: 03/12/19 06:48> Resident Involvement: Resident Care Provided Care Provided: Adult Hospital Medicine
[2019-03-12 07:06] LABS: Creatinine Clr Calc Pharmacy 93.7 ml/min; Est GFR (African American) 78.7; Est GFR (Non-African American) 67.9
[2019-03-12 07:20] LABS: Mean Corpuscular Hgb Conc 34.5 g/dL (32-36); Mean Platelet Volume 9.7 fL (7.4-10.4); Platelet Count 82 K/uL (130-400)
[2019-03-12 07:26] LABS: Basophils # (auto) 0.03 K/uL (0-0.2); Basophils % (auto) 0.2 %; Eosinophils # (auto) 0.12 K/uL (0-0.5); Eosinophils % (auto) 0.7 %; Immature Granulocytes # (auto) 0.15 K/uL (0.00-0.02); Immature Granulocytes % (auto) 0.9 %; Lymphocytes # (auto) 3.66 K/uL (1.2-3.4); Lymphocytes % (auto) 22.3 %; Monocytes # (auto) 1.27 K/uL (0.11-0.59); Monocytes % (auto) 7.7 %; Neutrophils # (auto) 11.19 K/uL (1.4-6.5); Neutrophils % (auto) 68.2 %; Platelet Estimate Decreased (Normal)
[2019-03-12] MEDS: FERROUS SULFATE 325 MG TAB PO SCH (08:23)
[2019-03-12] MEDS: LABETALOL HCL 300 MG TAB PO SCH ×2 (08:23→20:30)
[2019-03-12] MEDS: PRENATAL VITAMIN 1 TAB PO SCH (08:23)
[2019-03-12] MEDS: DOCUSATE SODIUM 100 MG CAP PO SCH ×2 (08:23→20:30)
[2019-03-12] MEDS: SIMETHICONE 80 MG CHEW PO SCH ×4 (08:24→20:30)
[2019-03-12] MEDS: AMLODIPINE BESYLATE 5 MG TAB PO SCH (08:49)
--- NOTE | 2019-03-12 15:28 | Obstetrical Progress Note ---
Date of Service March 12, 2019 Assessment & Plan (1) HELLP (hemolytic anemia/elev liver enzymes/low platelets in ): -Patient with continued elevated blood pressures. -Patient on high-dose labetalol with amelodipine -We will add lisinopril 10 mg daily -Discussed with patient, all questions answered Subjective Called to evaluate patient for elevated blood pressure. The patient states that prior to she was having trouble with floaters in her right eye. She was evaluated by ophthalmology. She was noted to have a posterior vitreous detachment. Her symptoms are unchanged from prior to which include seeing a blue-green light. Physical Exam Vital Signs (Past 24 Hours) Last Vital Signs Temp 36.6 C 03/12/19 12:33 Pulse 88 03/12/19 12:33 Resp 16 03/12/19 12:33 BP 164/104 H 03/12/19 15:12 Pulse Ox 97 03/12/19 12:33
[2019-03-12] MEDS: LISINOPRIL 10 MG TAB PO SCH (15:47)
[2019-03-13] MEDS: OXYCODONE/ACETAMINOPHEN 5mg/325mg TAB PO PRN ×5 (00:33→22:04)
--- NOTE | 2019-03-13 06:50 | Obstetrical Progress Note ---
Date of Service <Prabhjot Barton MD - Last Filed: 03/13/19 06:59> March 13, 2019 Assessment & Plan <Prabhjot Barton MD - Last Filed: 03/13/19 06:59> (1) HELLP (hemolytic anemia/elev liver enzymes/low platelets in ): Nadine Arias is a 33yo who was admitted for hypertensive crisis and HELLP syndrome. She was refractory to maximum doses of nicardipine, hydralazine, and labetelol with systolic pressure remaining >220 and underwent emergent section at 31+1. She was transferred to the ICU for continuation of care and blood pressure management and has since been downgraded. - Downgraded from ICU - BP 174/99 this morning. Had lisinopril 10mg qAM, recieved one dose last night and pending a second dose this morning. - Continue lisinopril 10mg daily, max dose of labetalol 300mg BID. Continue amlodipine 5mg PO daily, although this will have a delayed BP effect we will not see the maximum benefit of for several days. - No headaches since increasing labetalol to 300mg BID. - Ambulate to help improve ileus. - Plt dropped from 100's to 82K yesterday. No clinical signs of bleeding at this time. Continue to follow. - Transaminases continue to downtrend - Platelets, AST, ALT pending today. - No neurologic deficits appreciated at this time - Her baby is currently in the NICU at [facility]. - Her BP is not well controlled at this time, and she continues to require inpatient management of blood pressure. Subjective <Prabhjot Barton MD - Last Filed: 03/13/19 06:59> Ambulation: ambulating normally Voiding: no voiding problems Passing Gas:: Yes (No BM yet) Diet Tolerance:: regular diet Lochia:: Small Recovering from HELLP syndrome. Continues to have ankle/lower leg edema ~1+ and diffuse abdominal pressure from post-op ileus. Feels improved overall today. No headaches. Review of Systems Denies fever, chills, sweats Denies shortness of breath, difficulty breathing, chest pain, palpitations, chest pressure. Denies breast pain. Denies dysuria. Denies headache. Endorses bilateral leg/ankle swelling. Endorses abdominal distension. Physical Exam <Prabhjot Barton MD - Last Filed: 03/13/19 06:59> Vital Signs (Past 24 Hours) Last Vital Signs Temp 36.9 C 03/13/19 00:05 Pulse 86 03/13/19 00:05 Resp 18 03/13/19 00:05 BP 174/99 H 03/13/19 03:40 Pulse Ox 95 03/13/19 00:05 General: Alert, oriented. No acute distress. Cardiac: Regular rate and rhythm, no murmurs/rubs/gallops. Respiratory: Clear to auscultation anterior and posteriorly, no wheezes/rales/rhonchi. No increased work of breathing. Symmetrical chest rise. No respiratory distress. Abdomen: Soft, nontender, nondistended. Bowel sounds present. Uterus: Uterine fundus firm, palpable >2cm below umbilicus. Surgical incision C/D/I, without hematoma, erythema, warmth, discharge, or dehiscence. Lower Extremities: Bilateral lower leg and calf edema, improved from prior. No tenderness, warmth, or erythema. Homans negative. Neuro: Moves all extremities equally. PERLAA. No dysarthria. No facial asymmetry. Vision grossly intact. <Joesph Miles Jr, MD, FACOG - Last Filed: 03/13/19 07:12> Co-Signing Physician Notes Resident Physician Supervision Note: I was present with Dr. Barton during the history and exam. I discussed the case with the resident and agree with the findings and plan as documented in the note. Any exceptions or clarifications are listed here: BP's still not well controlled with DBP>100. Added Lisinopril 03/12. BP still unstable to allow d/c. Discussed with patient Documented By: Joesph Miles Jr, MD, FACOG Resident Activity Tracking <Prabhjot Barton MD - Last Filed: 03/13/19 06:59> Resident Involvement: Resident Care Provided Care Provided: Adult Hospital Medicine
[2019-03-13 07:51] LABS: Hematocrit (blood only) 34.9 % (37-47); Hemoglobin 11.5 g/dL (12.0-16.0); Mean Corpuscular Volume 88.4 fL (80-100); RDW Coefficient of Variation 14.6 % (11.5-14.5); RDW Standard Deviation 46.6 fL (36.4-46.3); Red Blood Count 3.95 M/uL (4.2-5.4); White Blood Count 13.48 K/uL (4.8-10.8)
[2019-03-13 08:19] LABS: Mean Platelet Volume 11.2 fL (7.4-10.4); Platelet Count 95 K/uL (130-400)
[2019-03-13 08:21] LABS: Platelet Estimate Decreased (Normal)
[2019-03-13 08:23] LABS: Albumin Level 2.1 gm/dl (3.4-5.0); Bilirubin Direct 0.2 mg/dl (0-0.2); Bilirubin,Total 0.7 mg/dl (0.2-1); Total Protein 5.7 gm/dl (6.4-8.2)
[2019-03-13] MEDS: FERROUS SULFATE 325 MG TAB PO SCH (08:54)
[2019-03-13] MEDS: SIMETHICONE 80 MG CHEW PO SCH ×4 (08:54→20:16)
[2019-03-13] MEDS: DOCUSATE SODIUM 100 MG CAP PO SCH ×2 (08:54→20:15)
[2019-03-13] MEDS: PRENATAL VITAMIN 1 TAB PO SCH (08:54)
[2019-03-13] MEDS: AMLODIPINE BESYLATE 5 MG TAB PO SCH (08:55)
[2019-03-13] MEDS: LISINOPRIL 10 MG TAB PO SCH ×2 (08:55→20:14)
[2019-03-13] MEDS ORDERED: LABETALOL HCL 200 MG TAB PO SCH ×3 (09:00→21:00)
[2019-03-13] MEDS ORDERED: LABETALOL HCL 200 MG TAB PO STA (14:00)
[2019-03-13 14:15] LABS: Hemoglobin 10.9 g/dL (12.0-16.0); Mean Corpuscular Volume 88.2 fL (80-100); RDW Coefficient of Variation 14.7 % (11.5-14.5); RDW Standard Deviation 46.5 fL (36.4-46.3); Red Blood Count 3.63 M/uL (4.2-5.4); White Blood Count 13.79 K/uL (4.8-10.8)
[2019-03-13 14:31] LABS: Est GFR (African American) 95.5; Est GFR (Non-African American) 82.4
[2019-03-13 14:35] LABS: Basophils # (auto) 0.02 K/uL (0-0.2); Basophils % (auto) 0.1 %; Eosinophils # (auto) 0.36 K/uL (0-0.5); Eosinophils % (auto) 2.6 %; Giant Platelets 1+; Immature Granulocytes % (auto) 0.7 %; Lymphocytes # (auto) 2.87 K/uL (1.2-3.4); Lymphocytes % (auto) 20.8 %; Mean Corpuscular Hgb Conc 34.1 g/dL (32-36); Mean Platelet Volume 10.1 fL (7.4-10.4); Monocytes # (auto) 0.83 K/uL (0.11-0.59); Neutrophils # (auto) 9.61 K/uL (1.4-6.5); Neutrophils % (auto) 69.8 %; Platelet Count 95 K/uL (130-400); Platelet Estimate Decreased (Normal); Toxic Granulation 1+; Toxic Vacuolation 1+
[2019-03-13] MEDS ORDERED: NIFEdipine 10 MG CAP PO STA (16:40)
--- NOTE | 2019-03-13 16:41 | Obstetrical Progress Note ---
Date of Service March 13, 2019 Subjective Nadine reports that she is feeling well and denying any PIH symptoms. Patient has had elevated BP 160-180/90-110s over the past 24 hours. In addition, liver enzymes have started to trend up again after initially declining. Remaining labs have been relatively stable. These findings were discussed with Nadine and stressed concern for worsening PIH. Offered another course of Mg. Increased antihypertensives 3 separate time today. Patient would like to continue to monitor. Symptoms discussed. Results & Data Vital Signs (Past 12 Hours) Vital Signs Temp Pulse Resp BP Pulse Ox 03/13/19 12:31 164/100 H 03/13/19 12:30 36.4 C L 77 22 168/105 H 96 03/13/19 10:10 147/91 H 03/13/19 07:42 173/103 H 03/13/19 07:40 36.6 C 80 20 176/105 H 96
[2019-03-13] MEDS ORDERED: NIFEdipine EXTENDED REL 30 MG TABCR PO STA (23:17)
[2019-03-14] MEDS: OXYCODONE/ACETAMINOPHEN 5mg/325mg TAB PO PRN ×5 (04:40→22:03)
[2019-03-14 06:31] LABS: Hematocrit (blood only) 33.7 % (37-47); Hemoglobin 11.5 g/dL (12.0-16.0); Mean Corpuscular Hgb Conc 34.1 g/dL (32-36); Mean Corpuscular Volume 88.2 fL (80-100); Mean Platelet Volume 10.6 fL (7.4-10.4); Platelet Count 116 K/uL (130-400); RDW Coefficient of Variation 14.6 % (11.5-14.5); RDW Standard Deviation 46.1 fL (36.4-46.3); Red Blood Count 3.82 M/uL (4.2-5.4); White Blood Count 12.42 K/uL (4.8-10.8)
--- NOTE | 2019-03-14 06:48 | Obstetrical Progress Note ---
Date of Service <Prabhjot Barton MD - Last Filed: 03/14/19 06:48> March 14, 2019 Assessment & Plan <Prabhjot Barton MD - Last Filed: 03/14/19 06:48> (1) HELLP (hemolytic anemia/elev liver enzymes/low platelets in ): Nadine Arias is a 33yo who was admitted for hypertensive crisis and HELLP syndrome. She was refractory to maximum doses of nicardipine, hydralazine, and labetelol with systolic pressure remaining >220 and underwent emergent section at 31+1. She was transferred to the ICU for continuation of care and blood pressure management and has since been downgraded. - Downgraded from ICU - Amlodipine discontinued, labetelol increased to 800 BID CHAY, lisinopril increased to 10mg BID - BP 170/94 this morning - No headaches - Ambulate to help improve ileus. Passing gas. - Plts had a small drop one day ago, have re-stabilized at ~90K - Mild transaminase increase yesterday, to 159/314 - Platelets, AST, ALT pending today. - No neurologic deficits appreciated at this time - Known vitreous floating in her R eye causes some shadowing, she has been seen by an opthamologist for this and it is at normal baseline for her. No new vision change, flashers, or diplopia. - Her baby is currently in the NICU at [facility]. - Her BP is not well controlled at this time, and she continues to require inpatient management of blood pressure. Subjective <Prabhjot Barton MD - Last Filed: 03/14/19 06:48> Ambulation: ambulating normally Voiding: no voiding problems Passing Gas:: Yes Diet Tolerance:: regular diet Lochia:: Small Current Pain Level(1-10): 0 Review of Systems Denies fever, chills, sweats Denies shortness of breath, difficulty breathing, chest pain, palpitations, chest pressure. Denies breast pain. Denies dysuria. Denies headache. Denies vision change. Endorses vitrous floaters in R eye, chronic, unchanging. No flashers, diplopia. Physical Exam <Prabhjot Barton MD - Last Filed: 03/14/19 06:48> Vital Signs (Past 24 Hours) Last Vital Signs Temp 36.6 C 03/14/19 04:30 Pulse 82 03/14/19 04:30 Resp 18 03/14/19 04:30 BP 170/94 H 03/14/19 04:30 Pulse Ox 97 03/14/19 04:30 General: Alert, oriented. No acute distress. Cardiac: Regular rate and rhythm, no murmurs/rubs/gallops. Respiratory: Clear to auscultation anterior and posteriorly, no wheezes/rales/rhonchi. No increased work of breathing. Symmetrical chest rise. No respiratory distress. Abdomen: Soft, nontender, nondistended. Bowel sounds present. Uterus: Uterine fundus firm, palpable >2cm below umbilicus. Lower Extremities: No lower extremity edema or swelling. No deep calf pain. Guido's negative bilaterally. Neuro: PERLAA, EoM intact, visual acuity grossly intact. No ankle clonus. <Bruce Rios MD - Last Filed: 03/20/19 14:41> Co-Signing Physician Notes Patient evaluated and agree with the above findings and plan Resident Activity Tracking <Prabhjot Barton MD - Last Filed: 03/14/19 06:48> Resident Involvement: Resident Care Provided Care Provided: Adult Hospital Medicine
[2019-03-14 07:08] LABS: Albumin Level 2.3 gm/dl (3.4-5.0); BUN Creatinine Ratio 15.7 (10-20); Calcium 9.1 mg/dl (8.5-10.1); Est GFR (African American) 100.8; Est GFR (Non-African American) 86.9
[2019-03-14 07:11] LABS: Albumin Globulin Ratio 0.6 (0.9-2); Bilirubin,Total 0.6 mg/dl (0.2-1); Globulin 3.6 gm/dl (2.5-4.0); Total Protein 5.9 gm/dl (6.4-8.2)
[2019-03-14] MEDS: FERROUS SULFATE 325 MG TAB PO SCH (09:04)
[2019-03-14] MEDS: PRENATAL VITAMIN 1 TAB PO SCH (09:04)
[2019-03-14] MEDS: DOCUSATE SODIUM 100 MG CAP PO SCH ×2 (09:04→20:05)
[2019-03-14] MEDS: SIMETHICONE 80 MG CHEW PO SCH ×4 (09:04→20:05)
[2019-03-14] MEDS: LABETALOL HCL 200 MG TAB PO SCH ×3 (09:07→20:05)
[2019-03-14] MEDS: LISINOPRIL 10 MG TAB PO SCH (09:08)
--- NOTE | 2019-03-14 11:54 | Consultation ---
Date of Consultation March 14, 2019 Assessment & Plan (1) HELLP syndrome: Patient with severe preeclampsia/HELLP at time of presentation on 03/09/19. This led to emergency on AM of 03/10/19 at EGA of 31 weeks. Admitted to the ICU for hypertensive emergency shortly after her and required about 24 hours of IV nicardipine infusion. Transitioned to oral BP meds on 03/10/19 and has had considerable titration of those meds since then. Platelet count and LFTs have improved over the last few days. H/H have been stable. Present on Admission?: Yes (2) Elevated blood pressure reading without diagnosis of hypertension: No prior history of essential HTN and no gestational HTN until the time of admission. Treated for severe preeclampsia/HELLP on 03/09 and 03/10 with completed early AM 03/10/19. Her BPs have gradually improved over the last 4-5 days with labetalol, lisinopril, and nifedipine. Since we are nearing 5 days post-delivery I suspect we may be nearing the peak period of difficulty in controlling her blood pressures. Hopefully we will continue to see a gradual decrease in her BPs over the next 2-3 days. Patient wishes to breastfeed. Thus, recommend continuing the labetalol and nifedipine xr but would discontinue the lisinopril. Safety data regarding CAMACHO inhibitor use in mothers is inconclusive and thus would recommend stopping the lisinopril completely. If we need additional BP control we can titrate the nifedipine xr. To be complete would check a TSH in the am. I would like to see consistent systolic readings in the 140-150 range at most and diastolics of at least <100 (preferably <90) for at least 24 hours on a stable regimen of medications. Would avoid NSAIDs for pain as these may make her BP worse. Present on Admission?: Yes (3) Hypertensive emergency: Resolved s/p ICU admission and nicardipine infusion. She has no evidence of any ongoing end-organ damage (renal function now normal, no chest pain or dyspnea, etc). (4) Morbid obesity with BMI of 40.0-44.9, adult: BMI 41 (5) Abnormal LFTs: 2nd to HELLP syndrome. LFTs trending down. Recheck LFTs in am. She does have history of abnormal HIDA scan with EF suggesting biliary dyskinesia. She is at high risk of worsening biliary tract disease and cholestasis. Observe for any biliary colic symptoms over the next few weeks/months. (6) Thrombocytopenia: 2nd to HELLP - improving. CBC am. (7) Abnormal biliary HIDA scan: history of. see above. (8) Acute kidney injury: 2nd to HELLP syndrome - resolved. Creatinine now normal. Thank you for the consult. I will follow with you. History of Present Illness Requesting Physician: Dr Sophia Farris Reason for Consultation: blood pressure management Attending Physician: Sophia Farris MD History of Present Illness Very pleasant 33yo female, now , with history of anxiety, heart murmur as child, and 3 prior spontaneous miscarriages who presented on 03/09/2019 to the [facility] L & D unit with RUQ abdominal pain, SOB, and markedly elevated BPs with documented systolic readings of about 220. LFTs were high as was LDH. She had been seen a few days prior in the [facility] office and was found to have proteinuria. At time of admission the patient's labs and clinical picture were consistent with HELLP syndrome. Multiple BP medications were given with improvement in her blood pressures to the 160s systolic. However, due to the severity of her HELLP, decision was made to proceed with c- section early in the AM of 03/10/19 at a gestational age of 31 weeks. was uneventful by history and her premature infant was transferred to [facility] for ongoing NICU care. Following her she was admitted to the MICU here at [facility] where she received a nicardipine drip for about 24 hours. She was weaned from the drip and placed on oral labetalol and amlodipine. She was then transferred back to the post- unit. By report she received IV magnesium in the ICU per protocol. Over the last few days her BPs have been stubbornly high with need for escalati ng doses of labetalol, addition of lisinopril, and also addition of nifepidine xr. The patient plans to breastfeed and or pump and give expressed BM to her . During my initial consult the patient denies any headaches, new visual changes, chest pain, dyspnea at rest, dyspnea with exertion, abdominal pain, nausea, emesis, diarrhea, constipation, dysuria, rashes, or leg pain. She has had LE edema since last week but this has gradually improved. She denies history of HTN at any point in the past. [employer] was reviewed and [facility] office readings dating back to her first trimester showed systolics of 120s to low 130s. Allergies Allergy/AdvReac Type Severity Reaction Status Date / Time Cephalosporins Allergy Unknown RASH Verified 01/26/18 11:20 Home Medications Home Medications Medication Instructions Recorded Confirmed Type vit-iron fum-folic ac 1 tab PO DAILY 03/10/19 03/10/19 History [ Vitamin] Patient History Medical History Abnormal biliary HIDA scan history of; 2018 Anxiety History of cardiac murmur as a child History of miscarriage History of ovarian cyst Vitreous degeneration and detachment Surgical History History of dilatation and curettage x 3 History of ovarian cystectomy Family History Grandfather (Maternal) Hypertension Aunt Hypertension Father Coronary heart disease Stroke Valvular heart disease Hyperlipidemia Social History Preferred Language: Turkish Communication Ability: Effective Computer Programming Supervisor Required: No Beliefs That Will Affect Care: None marital status: Current Living Situation: Spouse current occupational status: employed 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[place] [employer] Other Information That Helps Us Care for You: No Feels Safe at Home: Yes Safety Concerns: Feels Safe At This Time Smoking Status: Never smoker Do You Dip or Chew Tobacco: No Second Hand Exposure: No Tobacco Cessation Education Requested by Patient: No Hx Alcohol Use: No Hx Substance Use: No Review of Systems Constitutional: + fatigue; no fever, no chills and no anorexia Eyes: no worsening vision (but does have right-sided vitreous tear - this is chronic) Ear, Nose, Mouth, Throat: no nasal congestion and no sore throat Respiratory: no cough, no dyspnea and no dyspnea on exertion Cardiovascular: + edema; no chest pain, no dyspnea at rest, no dyspnea on exertion, no orthopnea and no paroxysmal nocturnal dyspnea Gastrointestinal: no abdominal pain, no nausea, no vomiting, no constipation and no diarrhea/loose stools Genitourinary: no dysuria Musculoskeletal: no back pain and no joint pain Integumentary: no rash Neurologic: no localized weakness, no paralysis and no numbness Psychiatric: + anxiety; no depression Endocrine: no polydipsia and no polyuria Hematologic / Lymphatic: no easy bruising Physical Exam Constitutional: well nourished and + obese; no acute distress Eyes: + anicteric sclerae and PERRL ENMT: external ear and nose normal, oropharynx normal Neck: trachea midline, no thyromegaly Respiratory: normal respiratory effort, lungs clear to auscultation Cardiovascular: Rate/Rhythm: regular rate and regular rhythm Heart Sounds: normal S1, normal S2 and + murmur (1/6 ELISSA LSB) Vessels: posterior tibial pulses present and dorsalis pedis pulses present; no JVD Extremities: + edema (1-2 + b/l) Gastrointestinal (Abdomen): normal bowel sounds, soft, nontender, no hepatosplenomegaly Percussion/Palpation: + hepatomegaly (liver edge palpable) incision clean Musculoskeletal: no cyanosis or clubbing, extremities motor strength 5/5 Skin: no rashes, warm and dry Neurologic: patellar DTR's 2+ bilat, sensation intact no focal motor deficits Motor/Sensory: no tremor Psychiatric: A+Ox3, euthymic affect Lymphatic: no cervical lymphadenopathy Results & Data Vital Signs (Past 12 Hours) Vital Signs Temp Pulse Pulse Resp BP BP Pulse Ox 03/14/19 08:15 76 171/99 H 03/14/19 08:00 36.6 C 75 20 170/89 H 97 03/14/19 04:30 36.6 C 82 18 170/94 H 97 Laboratory Results Laboratory Results - last 24 hr 03/13/19 03/14/19 03/14/19 21:04 06:08 06:08 WBC 12.42 H RBC 3.82 L Hgb 11.5 L Hct 33.7 L MCV 88.2 MCH 30.1 MCHC 34.1 RDW Std Deviation 46.1 RDW Coeff of Alejandro 14.6 H Plt Count 116 L MPV 10.6 H Sodium 142 Potassium 4.0 Chloride 108 H Carbon Dioxide 25 Anion Gap 8.0 BUN 14 Creatinine 0.88 Est Cr Clr Drug Dosing 115.0 Est GFR ( Amer) 100.8 Est GFR (Non-Af Amer) 86.9 BUN/Creatinine Ratio 15.7 Glucose 77 Calcium 9.1 Total Bilirubin 0.6 AST 131 H ALT 314 H 300 H Alkaline Phosphatase 125 H Total Protein 5.9 L Albumin 2.3 L Globulin 3.6 Albumin/Globulin Ratio 0.6 L 03/14/19 03/14/19 16:51 16:51 WBC 11.74 H RBC 3.75 L Hgb 11.4 L Hct 33.5 L MCV 89.3 MCH 30.4 MCHC 34.0 RDW Std Deviation 47.1 H RDW Coeff of Alejandro 14.7 H Plt Count 132 MPV 10.4 Sodium 139 Potassium 4.3 Chloride 109 H Carbon Dioxide 23 Anion Gap 7.0 BUN 18 Creatinine 0.96 Est Cr Clr Drug Dosing 105.5 Est GFR ( Amer) 90.7 Est GFR (Non-Af Amer) 78.3 BUN/Creatinine Ratio 18.8 Glucose 104 H Calcium 9.5 Total Bilirubin 0.5 AST 105 H ALT 277 H Alkaline Phosphatase 142 H Total Protein 6.4 Albumin 2.6 L Globulin 3.8 Albumin/Globulin Ratio 0.7 L (1) HELLP syndrome Trimester: third trimester Qualified Code(s): O14.23 - HELLP syndrome (HELLP), third trimester
[2019-03-14] MEDS ORDERED: NIFEdipine EXTENDED REL 30 MG TABCR PO SCH (12:00)
[2019-03-14 17:13] LABS: Hematocrit (blood only) 33.5 % (37-47); Hemoglobin 11.4 g/dL (12.0-16.0); Mean Corpuscular Volume 89.3 fL (80-100); Mean Platelet Volume 10.4 fL (7.4-10.4); Platelet Count 132 K/uL (130-400); RDW Coefficient of Variation 14.7 % (11.5-14.5); RDW Standard Deviation 47.1 fL (36.4-46.3); Red Blood Count 3.75 M/uL (4.2-5.4); White Blood Count 11.74 K/uL (4.8-10.8)
[2019-03-14 17:31] LABS: Albumin Level 2.6 gm/dl (3.4-5.0); BUN Creatinine Ratio 18.8 (10-20); Calcium 9.5 mg/dl (8.5-10.1); Creatinine Clr Calc Pharmacy 105.5 ml/min; Est GFR (African American) 90.7; Est GFR (Non-African American) 78.3; Potassium 4.3 mmol/L (3.5-5.1)
[2019-03-14 17:34] LABS: Albumin Globulin Ratio 0.7 (0.9-2); Bilirubin,Total 0.5 mg/dl (0.2-1); Globulin 3.8 gm/dl (2.5-4.0); Total Protein 6.4 gm/dl (6.4-8.2)
[2019-03-15] MEDS: OXYCODONE/ACETAMINOPHEN 5mg/325mg TAB PO PRN ×2 (04:53→09:54)
--- NOTE | 2019-03-15 06:29 | Obstetrical Progress Note ---
Date of Service <Prabhjot Barton MD - Last Filed: 03/15/19 06:29> March 15, 2019 Assessment & Plan <Prabhjot Barton MD - Last Filed: 03/15/19 06:29> (1) HELLP (hemolytic anemia/elev liver enzymes/low platelets in ): Nadine Arias is a 33yo who was admitted for hypertensive crisis and HELLP syndrome. She was refractory to maximum doses of nicardipine, hydralazine, and labetelol with systolic pressure remaining >220 and underwent emergent section at 31+1. She was transferred to the ICU for continuation of care and blood pressure management and has since been downgraded. - Medicine consulted. - Lisinopril discontinued - Dose of labetalol maxed to 800mg TID. - Nifedipine 30mg daily orally. - BP 159/100 this morning, slowly improving - No headaches - Ambulate to help improve ileus. Passing gas. - Plts had a small drop one day ago, have normalized today - Transaminases downtrending - Platelets, AST, ALT pending today. - No neurologic deficits appreciated at this time - Known vitreous floating in her R eye causes some shadowing, she has been seen by an opthamologist for this and it is at normal baseline for her. No new vision change, flashers, or diplopia. - Her baby is currently in the NICU at [facility]. Subjective <Prabhjot Barton MD - Last Filed: 03/15/19 06:29> Ambulation: ambulating normally Voiding: no voiding problems Passing Gas:: Yes Diet Tolerance:: regular diet Lochia:: Small Current Pain Level(1-10): 0 Review of Systems Denies fever, chills, sweats Denies shortness of breath, difficulty breathing, chest pain, palpitations, chest pressure. Denies breast pain. Denies dysuria. Denies headache. Physical Exam <Prabhjot Barton MD - Last Filed: 03/15/19 06:29> Vital Signs (Past 24 Hours) Last Vital Signs Temp 37.0 C 03/15/19 04:45 Pulse 77 03/15/19 04:45 Resp 17 03/15/19 04:45 BP 153/99 H 03/15/19 05:25 Pulse Ox 97 03/15/19 04:45 General: Alert, oriented. No acute distress. Cardiac: Regular rate and rhythm, no murmurs/rubs/gallops. Respiratory: Clear to auscultation anterior and posteriorly, no wheezes/rales/rhonchi. No increased work of breathing. Symmetrical chest rise. No respiratory distress. Abdomen: Soft, nontender, nondistended. Bowel sounds present. No RUQ pain. Surgical incision healing well, C/D/I Uterus: Uterine fundus firm, palpable >2cm below umbilicus. Lower Extremities: improving lower extremity edema or swelling. No deep calf pain. Guido's negative bilaterally. Neuro: PERLAA, EoM intact, no visual cuts, no decreased acuity. <Sophia Farris MD - Last Filed: 03/15/19 07:31> Co-Signing Physician Notes I have reviewed the resident's note and examined the patient myself, and agree with the note above. Patient to discharge home with Labetalol 800mg PO TID and Procardia XL 30mg Daily. To have BP check in office Monday. Resident Activity Tracking <Prabhjot Barton MD - Last Filed: 03/15/19 06:29> Resident Involvement: Resident Care Provided Care Provided: Adult Hospital Medicine
[2019-03-15 07:18] LABS: Hematocrit (blood only) 36.6 % (37-47); Hemoglobin 12.1 g/dL (12.0-16.0); Mean Corpuscular Hgb Conc 33.1 g/dL (32-36); Mean Corpuscular Volume 89.3 fL (80-100); Mean Platelet Volume 10.7 fL (7.4-10.4); Platelet Count 161 K/uL (130-400); RDW Coefficient of Variation 14.7 % (11.5-14.5); RDW Standard Deviation 46.9 fL (36.4-46.3); White Blood Count 10.62 K/uL (4.8-10.8)
[2019-03-15 07:49] LABS: Albumin Level 2.7 gm/dl (3.4-5.0); BUN Creatinine Ratio 18.3 (10-20); Calcium 9.6 mg/dl (8.5-10.1); Creatinine Clr Calc Pharmacy 105.5 ml/min; Est GFR (African American) 90.7; Est GFR (Non-African American) 78.3; Potassium 4.2 mmol/L (3.5-5.1)
[2019-03-15 08:00] LABS: Albumin Globulin Ratio 0.6 (0.9-2); Bilirubin,Total 0.6 mg/dl (0.2-1); Globulin 4.3 gm/dl (2.5-4.0)
[2019-03-15 08:12] LABS: T4 Free Thyroxine 0.89 ng/dl (0.8-1.6)
[2019-03-15] MEDS: LABETALOL HCL 200 MG TAB PO SCH (09:54)
[2019-03-15] MEDS: FERROUS SULFATE 325 MG TAB PO SCH (09:54)
[2019-03-15] MEDS: DOCUSATE SODIUM 100 MG CAP PO SCH (09:54)
[2019-03-15] MEDS: PRENATAL VITAMIN 1 TAB PO SCH (09:55)
[2019-03-15] MEDS: SIMETHICONE 80 MG CHEW PO SCH (09:55)
[2019-03-15] MEDS ORDERED: NIFEdipine 10 MG CAP ONE (09:56)
[2019-03-15] MEDS ORDERED: NIFEdipine EXTENDED REL 30 MG TABCR PO SCH (10:15)
--- NOTE | 2019-03-15 18:16 | Hospitalist Progress Note ---
Date of Service March 15, 2019 Assessment & Plan (1) HELLP syndrome: Patient with severe preeclampsia/HELLP at time of presentation on 03/09/19. This led to emergency on AM of 03/10/19 at EGA of 31 weeks. Admitted to the ICU for hypertensive emergency shortly after her and required about 24 hours of IV nicardipine infusion. Transitioned to oral BP meds on 03/10/19 and has had considerable titration of those meds since then. Platelet count and hemoglobin have normalized. LFTs continue to fall/improve. Doing well from OB standpoint. (2) Elevated blood pressure reading without diagnosis of hypertension: No prior history of essential HTN and no gestational HTN until the time of admission. Treated for severe preeclampsia/HELLP on 03/09 and 03/10 with completed early AM 03/10/19. Her BPs have gradually improved over the last 4-5 days with labetalol, lisinopril, and nifedipine. Lisinopril d/c yesterday since patient will be and it is unknown if lisinopril is safe in setting of nursing. Labetalol/nifedipine are permissible while . BPs are certainly much better relative to earlier this week but still not optimal. Will increase nifedipine xr to 60mg once daily. Cont labetalol as is. Would d/c patient home on labetalol 800 TID and nifedipine xr 60mg daily. I recommended to the patient that she purchase a home BP cuff and check her BPs daily. I do suspect that her BPs will continue to improve over the next 1-2 weeks and hopefully her meds can be weaned. I recommended PCP follow-up in addition to OB follow-up. Gave names of PCPs in [place] that she could see. Side effects of nifedipine discussed (edema, etc). (3) Hypertensive emergency: Resolved s/p ICU admission and nicardipine infusion. (4) Morbid obesity with BMI of 40.0-44.9, adult: BMI 41 (5) Abnormal LFTs: 2nd to HELLP syndrome. LFTs continuing to trend down. Recheck LFTs as outpatient in the next week or so. She does have history of abnormal HIDA scan with EF suggesting biliary dyskinesia. She is at high risk of worsening biliary tract disease and cholestasis in light of recent . Observe for any biliary colic symptoms over the next few weeks/months. (6) Thrombocytopenia: 2nd to HELLP - resolved. (7) Abnormal biliary HIDA scan: history of. see above. (8) Acute kidney injury: 2nd to HELLP syndrome - resolved. Creatinine now normal. (9) Abnormal TSH: TSH is mildly high, and free T4 is borderline low. Her mother has hypothyroidism. Advised repeat outpatient TFTs in 1 month as she is at risk of worsening thyroid function. From medical standpoint can d/c home. It was a pleasure being involved in the care of this pleasant patient. Subjective patient feels good. is being discharged today. BPs were stable overnight - upper 140s to about 160 systolic. denies any dizziness, lightheadedness, dyspnea on exertion, chest pain, abd pain, nausea, pain with eating meals, headaches. passing flatus and stools. Review of Systems Constitutional: no fever, no chills, no fatigue and no anorexia Respiratory: no cough Cardiovascular: + edema; no chest pain, no orthopnea and no paroxysmal nocturnal dyspnea Gastrointestinal: no abdominal pain, no nausea and no vomiting Physical Exam Constitutional: well developed, well nourished and + obese; no acute distress Eyes: + anicteric sclerae ENMT: external ear and nose normal, oropharynx normal Neck: trachea midline, no thyromegaly Respiratory: normal respiratory effort, lungs clear to auscultation Cardiovascular: Rate/Rhythm: regular rate and regular rhythm Heart Sounds: normal S1, normal S2 and + murmur (1/6 ELISSA LSB) Vessels: posterior tibial pulses present and dorsalis pedis pulses present; no JVD Extremities: + edema (1+ b/l) Gastrointestinal (Abdomen): normal bowel sounds, soft, nontender, no hepatosplenomegaly Skin: no rashes, warm and dry Psychiatric: A+Ox3, euthymic affect Results & Data Vital Signs (Past 12 Hours) Vital Signs Temp Pulse Resp BP Pulse Ox 03/15/19 09:25 36.5 C 60 18 164/98 H 99 03/15/19 08:00 36.5 C 60 18 164/98 H 99 Laboratory Results Laboratory Results - last 24 hr 03/15/19 03/15/19 07:07 07:07 WBC 10.62 RBC 4.10 L Hgb 12.1 Hct 36.6 L MCV 89.3 MCH 29.5 MCHC 33.1 RDW Std Deviation 46.9 H RDW Coeff of Alejandro 14.7 H Plt Count 161 MPV 10.7 H Sodium 141 Potassium 4.2 Chloride 108 H Carbon Dioxide 25 Anion Gap 8.0 BUN 18 Creatinine 0.96 Est Cr Clr Drug Dosing 105.5 Est GFR ( Amer) 90.7 Est GFR (Non-Af Amer) 78.3 BUN/Creatinine Ratio 18.3 Glucose 84 Calcium 9.6 Total Bilirubin 0.6 AST 71 H ALT 243 H Alkaline Phosphatase 146 H Total Protein 7.0 Albumin 2.7 L Globulin 4.3 H Albumin/Globulin Ratio 0.6 L TSH 4.750 H Free T4 0.89 (1) HELLP syndrome Trimester: third trimester Qualified Code(s): O14.23 - HELLP syndrome (HELLP), third trimester
--- NOTE | 2019-03-18 11:44 | Coding Query ---
Your help is needed for correct coding of this account; please clarify if the patients Post-operative Ileus was: (x ) expected out of the surgery ( ) unexpected complication from the surgery ( )other please specify Thank you Destiny LOCKHART
--- NOTE | 2019-03-21 13:42 | Discharge Summary ---
Date of Service March 21, 2019 Admission HPI Per Admitting Provider 33yo at 31 10/15 with SIUP and known large proteinuria since yesterday. Presents with symptoms of shortness of breath and severe RUQ pain. RN called me to notify me of her arrival on L&D and "her blood pressures are scary." I ran from call room to LD2 to evaluate patient. Nursing staff already mobilizing and beginning necessary steps including establishing IV, monitoring, etc. I am familiar with this patient having just seen her in office two days ago and reviewed labs yesterday. Reviewed record quickly and accepted with no changes. Found to have BP 230/113 on arrival. Patient questioned and denies GUARDADO and vision changes but does note she has feeling of chest pain (lower in rib area, actually same as her whole upper abdominal pain), some shortness of breath. Pain is constant and not like contractions. +FM no LOF no VB. Denies epistaxis or bruising. No change to edema per patient. On exam she is appearing anxious. Lying on her left side, breathing heavily. Auscultation shows reduced breath sounds, mild crackles at bilateral bases. Heart with RRR. Gravid, not tender over uterine body. Cvx cl/th/hi. No VB. US:vertex position, adequate DVP. Extremities: 3+ DTR with clonus. 2+ edema, nonpitting. A/P: Multiple simultaneous measures instituted with help of multiple nursing staff. groundwater monitoring technician, Pulse Ox, facemask O2 placed, monitor established. Two IV sites established. Aviation Mechanic called and STAT labs including CMP, CBC, LDH, Coags, Fibrinogen ordered and drawn. Blood bank notified of severe preeclampsia patient in house; they report that 3 platelet p acks are in and available. 20mg IV labetalol push. 6gm MagSO4 bolus run over 20min, followed by 4gm/hr maintenance readied. Bedrails up and seizure precautions noted. At this point I saved my draft note and stepped out of room to discuss this patient with Drs. Yanes and Fatemeh(?) at [facility] [place]. We agree she is not stable for transfer at this time but that if BP can be brought to 140-160/80-110 range, they will accept in transfer. Returned to room where I am staying at bedside. Patient and Prabhjot counseled as we go along with these measures. She continues to feel chest pain, and is saturating 98-100% but I requested a stat CXR which was just done (23:33pm) status remains reassuring. Patient states RUQ very slightly eased, and she is feeling warmth from the magnesium. BMTZ given IM R gluteus. Will continue to work at lowering BP. BP 189/117. Currently (23:35) I have ordered 80mg IV labetalol a few minutes ago however that amount is not available on L&D, was requested from pharmacy and is now arriving by tube. Will give marcel. Discharge Data Consultations 03/10/19 02:40 Consult Anesthesiology Stat 03/10/19 11:41 Consult National Insurance Officer Routine 03/14/19 10:17 Consult Internal Medicine Routine Procedures Performed Operation Date: 03/10/19 03:30 Actual Procedures p Section in Operating Room - Sophia Farris MD Hospital Course (1) HELLP syndrome: Patient admitted with HELLP syndrome. Unable to control BP on max antihypertensive agents, therefore emergency at 31 weeks undertaken. NICU team sent by [facility] [place] took baby for care. Mom admitted to ICU for acute BP management. Discharged from ICU two days later to floor level care with oral agents. Required several days of titration to achieve acceptable reduction in BP on oral agents. Eventually discharged on Labetalol 800mg PO TID and Procardia XL 30mg PO daily. Plan was for f/u in office in 3 days.
== END 2019-03-15 10:30 | disposition home or self-care (01) | DRG 787 ==
LOC: OPB 22:36 → EDSTATUS 22:36 → 4S1 22:38 → 1E 03-10 06:31 → 4S2 03-11 17:04